=== PATIENT | female | born 1975 | race Caucasian/White ===

== ENCOUNTER 2017-09-10 11:21 | Inpatient (IN) ==
[2017-09-10] MEDS ORDERED: ONDANSETRON 4 MG/2 ML VIAL IV PRN (17:03)
[2017-09-10 17:14] LABS: ABG Base Excess -2.3 MMOL/L (-2.5-2.5); ABG HCO3 22.5 MMOL/L (20-26); ABG Oxygen Saturation 98.8 % (95-100); ABG PCO2 39.1 MM HG (35-48); ABG PH 7.371 (7.35-7.45); ABG TCO2 20.7 MMOL/L (23-27); Allen Test Positive; Pt O2 Delivery Device Venturi Mask
--- NOTE | 2017-09-10 17:22 | Hospitalist History & Physical ---
Assessment and Plan - Time spent with patient Time spent with patient: Greater than 30 minutes (1) Dyspnea Status: Acute Assessment and plan: 42 year old female with severe BENTLEY. Transfer from [place]. ABGs. Stat CXR. Continue breathing treatments. Consider continuous CPAP or BiPAP. Consult pulmonolgy. Due to severe O2 dependency, make NPO. D5 1/2 NS. Possible sepsis. Lactic acid. Blood cultures x2. IV fluids. Current Visit: Yes (2) Hypertension Status: Acute Assessment and plan: Continue home meds. Monitor BP. Current Visit: Yes (3) Mycoplasma pneumonia Status: Acute Assessment and plan: Continue zitromax 500mg Q24H. Consult pulmonology for assistance. Current Visit: Yes (4) Ulcerative colitis, chronic Status: Acute Assessment and plan: Chronic. Controlled with diet. Current Visit: Yes History of Present Illness Chief complaint: severe BENTLEY History of present illness: Ms. Coleman is a 42 year old white female with a past medical history significant for ulcerative colitis, hypertension, mycoplasma pneumonia who presents today as a direct admit from [facility], [place] for further evaluation of severe dyspnea on exertion. 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 She was seen several times over the last 2 weeks by at various clinics both here in [place] and at [place]. She was initially treated with Levaquin and discharged home. She was again admitted 2 days later and found to have mycoplasma pneumoniae and began treatment with azithromycin. The patient continued to have respiratory problems and was transferred to [facility] for further care. On exam, the patient is satting in the upper 90s on 10L O2 per facemask. She is extremely oxygen dependent with her O2 sat dropping to the low 80s if the mask is removed for any period of time. She complains of chest pain, severe BENTLEY, some N/V and LE edema. She denies any other complaints at this time. Lab work is pending. The case has been discussed with Dr. Stone and the patient will be admitted to the hospital medicine service for further evaluation and treatment. She is a FULL CODE and makes her own medical decisions. Home medications have been reviewed and reconciled. Home Medications Medication Instructions Recorded Confirmed Type ALPRAZolam [Alprazolam] 0.5 mg PO TID PRN 09/10/17 09/10/17 History Dextroamphetamine/Amphetamine 20 mg PO BID 09/10/17 09/10/17 History [Adderall 20 mg Tablet] Fluoxetine HCl [Prozac] 40 mg PO DAILY 09/10/17 09/10/17 History Losartan/Hydrochlorothiazide 1 tablet PO DAILY 09/10/17 09/10/17 History [Losartan-Hctz 100-25 mg Tab] Allergies Allergy/AdvReac Type Severity Reaction Status Date / Time Hydromorphone [From Dilaudid] Allergy Verified 09/10/17 15:07 morphine Allergy Verified 09/10/17 15:07 sulfamethoxazole Allergy Verified 09/10/17 15:07 [From Bactrim] trimethoprim [From Bactrim] Allergy Verified 09/10/17 15:07 Medical,Surgical,& Family Hx - Medical History Cardio: History of: Hypertension Psychological: History of: Anxiety Disorders, Depression Neurology: History of: Migraine Respiratory: History of: Bronchitis Gastrointestinal: History of: Ulcerative Colitis - Family History Family History: Reports;: Family Cancer (aunt breast ca), Family Heart Disease ( grandpa), Family Hypertension (grandpa) Denies;: Family Diabetes - Social History Smoking Status: Former smoker Frequency of Alcohol Use: Occasionally Type of Drug Use: None Marital Status: Single Lives With:: Alone Functional capacity: independent ambulation 12 point system: reviewed and no additional remarkable complaints except as stated Exam - Constitutional Vitals: Period Temp Pulse Resp BP Sys/Cardoza Pulse Ox Last 24 Hr 97.4 F-97.4 F 92-92 21-21 157-157/108-108 100-100 Exam: General appearance: obese, mild distress - Head Head exam: Present: normocephalic, atraumatic - Eye Eye exam: Present: EOMI. Absent: conjunctival injection, nystagmus Pupils: Present: BON, normal accommodation - ENT ENT exam: Present: normal exam, normal external ear exam - Neck Neck exam: Present: normal inspection. Absent: lymphadenopathy, tenderness, thyromegaly - Respiratory Respiratory exam: Present: decreased breath sounds bilaterally. Absent: rales, rhonchi, wheezes - Cardiovascular Cardiovascular exam: Present: regular rate and rhythm. Absent: carotid bruit, gallop, rubs - GI/Abdominal GI/Abdominal exam: Present: normal bowel sounds. Absent: ascites, distended, mass - Extremities Exam Extremities exam: Present: normal inspection, normal capillary refill. Absent: edema - Back Exam Back exam: Absent: CVA tenderness (L), CVA tenderness (R) - Neurological Exam Neurological exam: Present: alert, oriented X3, CN II-XII intact, reflexes normal - Psychiatric Psychiatric exam: Present: normal affect, normal mood - Skin Skin exam: Present: normal color, warm, dry Results - Labs Labs: Labs are pending - Diagnostic Findings Procedure: Chest x-ray: image reviewed by me
[2017-09-10] MEDS ORDERED: DEXTROSE 5% NACL 0.45% 1,000 ML IV SCH (18:00)
[2017-09-10 18:18] LABS: Basophils % 0.1 % (0.0-0.8); Hematocrit 32.2 VOL% (35.7-47.0); Hemoglobin 10.1 GM/DL (12.0-16.0); Immature Granulocytes % 1.9 %; Immature Granulocytes Absolute 0.23 #; Lymphocytes # 0.7 10*3/uL (1.4-4.0); Lymphocytes % 5.5 % (21.3-54.2); Mean Corpuscular HGB Conc 31.4 GM/DL (32-36); Mean Corpuscular Hemoglobin 27 PG (27-34); Mean Corpuscular Volume 86.8 FL (87-102); Monocytes # 0.6 10*3/uL (0.11-0.8); Monocytes % 4.7 % (1.7-12.7); NRBC # 0.03 10*3/uL; Neutrophils # 10.8 10*3/uL (1.4-7.4); Neutrophils % 87.8 % (38.7-73.9); Platelet Count 598 T/CUMM (130-400); Red Blood Count 3.71 MC/CUMM (3.8-5.5); Red Cell Distribution Width 15.2 % (9.3-17.3); White Blood Count 12.2 T/CUMM (4-12)
--- NOTE | 2017-09-10 18:20 | XRay Report ---
History: Shortness of breath Date: 09/10/2017 Study: Chest x-ray AP portable Comparison exam: No previous similar There is cardiomegaly. The pulmonary vasculature appears borderline to mildly prominent. There is some patchy and hazy edema/infiltrate in the mid to lower lungs bilaterally. There is trace pleural effusion in the right minor fissure and likely in the lung bases. There is no pneumothorax. Osseous structures are unremarkable. Impression: Diffuse patchy and hazy pulmonary edema/infiltrate, more so in the lung bases. There is cardiomegaly and mild prominence of the pulmonary vasculature, suggesting at least an element of cardiac decompensation PROCEDURE INTERPRETED AT [facility] DEPARTMENT OF RADIOLOGY Final Report Signed by: Dr. Trish Duncan
[2017-09-10 18:27] LABS: Partial Thromboplastin Time 25.2 SECS (0-40)
[2017-09-10 19:04] LABS: Bilirubin,Total 0.4 MG/DL (0.2-1.0); Calcium 9.3 MG/DL (8.5-10.1); Osmolality,Calculated 272.4 MOS/KG (273-304); Potassium 5.4 MMOL/L (3.5-5.1); Thyroid Stimulating Hormone 1.63 uIU/ml (0.358-3.74); Total Protein 6.3 G/DL (6.4-8.3)
[2017-09-10] MEDS: FUROSEMIDE 40 MG/4 ML VIAL IV SCH (19:12)
--- NOTE | 2017-09-10 19:46 | Pulmonology Consult Note ---
History of Present Illness Chief complaint: Pneumonia History of present illness: Dar Villegas, [facility], acting as scribe for Dr. Darren Agustin Ms. Coleman is a 42 year old white female who we have been asked to see in pulmonary consultation for evaluation and treatment. The request for consultation was made by Dr. Stone. 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 She states that she has had an approximate 1 and half week history of worsening shortness of breath. She states that on 08/30/2017 she began "feeling bad". She went to bed early that night and by the next morning she had a productive cough. When she was able to expectorate her sputum it was bloody. She has been seen at clinics locally and here in [place] and treated initially with Levaquin, but reportedly had positive cold agglutinins consistent with mycoplasma and was started on azithromycin. Nonetheless, she is become increasingly more hypoxic. Presently on 10 L oxygen via full facemask she is satting in the upper 80s to low 90s. When she takes the oxygen off, her sats significantly drop. She was admitted to the hospitalist service for further evaluation and care. Tonight she was seen along with her nurse and a female family member. She reports increased shortness of breath and dyspnea on exertion as above. There is been a productive cough with discolored sputum as above. She states that early on the course this illness she had a low-grade fever with a T-max of approximately 99.4, but this quickly broke. At that time, she had associated chills, but has had none since. She denies any cardiac angina or palpitations. She denies dysphasia or reflux. There is been no bleeding from any site. No change in bowel or bladder habits. No TIA symptoms or syncope. All other systems are reviewed and were negative. Allergies: Hydromorphone, morphine, Bactrim DS Home medications: See list Past medical history: Positive for ulcerative colitis, hypertension, anxiety, depression, migraines, and recent diagnosis of mycoplasma pneumonia. Of note, the patient is on Adderall. Family history: Positive for breast cancer in an aunt, heart disease in a grandfather, and hypertension in a grandfather Surgical history: Noncontributory at this time Social history: The patient is respiratory therapist at [employer]. She is a former smoker. She occasionally drinks alcohol. She is single. Chest x-ray. Done 09/10/2017. My interpretation. Five lobe alveolar infiltrate with associated interstitial edema. Laboratory: White count is 12,200 with 87.8% segs, 5.5% lymphs, and 4.7% monos; H&H 10.1/32.2 with decreased indices and top normal red blood cell distribution width; platelet count 598,000; INR 1.0; creatinine 0.70, BUN 29, sodium 133 ( hyponatremia), potassium 5.4 (hyperkalemia); calcium 9.3, albumin 3.0, total protein 6.3; lactic acid 1.6; hemoglobin A1c 4.6; liver function test within normal limits with the exception of a minimally elevated AST of 39; BNP 2357; LDH elevated at 429; TSH and free T4 normal at 1.630 and 1.16 respectively ABGs done 09/10/2017 on an FiO2 of 40% showed pH of 7.371, PCO2 39.1, PO2 126.0 , bicarb 22.5, and oxygen saturation 98.8% Home Medications Medication Instructions Recorded Confirmed Type ALPRAZolam [Alprazolam] 0.5 mg PO TID PRN 09/10/17 09/10/17 History Dextroamphetamine/Amphetamine 20 mg PO BID 09/10/17 09/10/17 History [Adderall 20 mg Tablet] Fluoxetine HCl [Prozac] 40 mg PO DAILY 09/10/17 09/10/17 History Losartan/Hydrochlorothiazide 1 tablet PO DAILY 09/10/17 09/10/17 History [Losartan-Hctz 100-25 mg Tab] Allergies Allergy/AdvReac Type Severity Reaction Status Date / Time Hydromorphone [From Dilaudid] Allergy Verified 09/10/17 15:07 morphine Allergy Verified 09/10/17 15:07 sulfamethoxazole Allergy Verified 09/10/17 15:07 [From Bactrim] trimethoprim [From Bactrim] Allergy Verified 09/10/17 15:07 Exam (Pulmonay) H&P - Constitutional Vitals: Period Temp Pulse Resp BP Sys/Cardoza Pulse Ox Last 24 Hr 97.4 F-97.4 F 92-92 21-21 157-157/108-108 100-100 Exam: Psych: Oriented x 3; a pleasant and cooperative patient who is acutely ill appearing HEENT: Pupils, irises, sclera, conjunctiva, and eyelids are normal. The face is symmetrical without rash or masses. Lips, tongue, buccal mucosa, soft and hard palates, and pharynx are WNL Neck: Symmetrical. Thyroid was not palpated. Lymphatics: No submandibular, cervical, or supraclavicular adenopathy Chest: Symmetrical without wheeze, rhonchi or rales; decreased breath sounds bilaterally Breasts: Deferred CV: [Regular without murmur, rub, or gallop Arterial: Carotids with a good upstroke. There is no bruit. Upper extremity pulses are palpable. Lower extremity pulses are palpable. Venous: Exam of the neck, upper, and lower extremities is normal Abd: No appreciable organomegaly, masses, tenderness, or bruit; Bowel sounds are positive 4; The aorta was not palpated /Rectal: Deferred Extremities: No clubbing, cyanosis, edema, or obvious DVT; bilateral TALITA hose and use Skin: No cancerous or infectious lesions of the exposed, examined skin; the perineal area was not examined M/S: Age appropriate loss of the normal curvature of the cervical, thoracic, and lumbar spine Neurological: Cranial nerves are intact, Long tract motor function is intact; Sensory exam was not done; gait was not tested. The remainder of the exam was noncontributory. Impression: #1: Acute bilateral pneumonia most likely secondary to mycoplasma pneumonia, but consider bacterial superinfection #2: Hypoxemia secondary to #1 #3: Hypertension #4: History of ulcerative colitis #5: Hyperkalemia #6: Anxiety #7: Depression #8: Migraines #9: Anemia #10: Elevated LDH #11: See past history Plan: #1: We agree with the azithromycin, but will add Fortaz and vancomycin for greater gram-negative and gram-positive coverage in the event that this is a bacterial superinfection. Pharmacology has been consulted to dose and manage the vancomycin. #2: We have started Solu-Medrol 40 mg IV every 8 hours. This could easily develop into an adult respiratory distress syndrome picture. We discussed this at length with the patient and her female family member who is present. If the patient begins to deteriorate, we would need to intubate her. She understands this and states that she had been thinking about this prior to our conversation. 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 #3: Check cold agglutinins, Legionella, pro-calcitonin, and strep pneumoniae urine antigen #4: Daily chest x-ray and ABGs #5: Check iron studies, B12 level, and folate level #6: See orders We appreciate this consult and will follow along with you. Medical,Surgical,& Family Hx - Medical History Cardio: History of: Hypertension Psychological: History of: Anxiety Disorders, Depression Neurology: History of: Migraine Respiratory: History of: Bronchitis Gastrointestinal: History of: Ulcerative Colitis - Family History Family History: Reports;: Family Cancer (aunt breast ca), Family Heart Disease ( grandpa), Family Hypertension (grandpa) Denies;: Family Diabetes - Social History Smoking Status: Former smoker Frequency of Alcohol Use: Occasionally Type of Drug Use: None Results - Labs CBC & BMP: 09/10/17 17:33 09/10/17 17:33
[2017-09-10 20:22] LABS: HIV Antigen/Antibody Result Nonreactive (Nonreactive)
--- NOTE | 2017-09-10 20:28 | CT Report ---
History: Shortness of breath. Pneumonia Date: 09/10/2017 Study: CT chest with IV contrast with pulmonary embolus technique Comparison exam: No previous similar The CT exam was performed using one or more of the following dose reduction techniques: Automated exposure control, adjustment of the mA and/or kV according to patient size, or use of iterative reconstruction technique. Spiral CT sections were obtained through the lungs following the IV administration of 80 mL of Omnipaque 350 without immediate complication. Multiplanar reconstruction images are also evaluated. There is no definite discrete filling defect within the pulmonary arterial tree to strongly suggest acute pulmonary embolic disease. There is no thoracic aortic aneurysm or dissection. There is mild mediastinal lymphadenopathy with a largest lymph node measuring at least 11.4 mm short axis diameter in the left prevascular area. There is a moderate to large amount of layering pleural effusion on the right with mild layering left pleural effusion. There is patchy and hazy and groundglass infiltrate scattered throughout both lungs diffusely. Bilateral breast prostheses are noted. There is no definite acute abnormality noted in the partially visualized upper abdomen. Impression: No convincing evidence of acute pulmonary embolic disease Bilateral airspace disease compatible with pneumonia. Right greater than left pleural effusion PROCEDURE INTERPRETED AT [facility] DEPARTMENT OF RADIOLOGY Final Report Signed by: Dr. Trish Duncan
[2017-09-10] MEDS: methylPREDNISolone SOD SUC 40 MG/1 ML VIAL IV SCH (20:29)
[2017-09-10] MEDS: AZITHROMYCIN INJ 500 MG in SODIUM CHLORIDE 0.9% 250 ML IV SCH (20:29)
[2017-09-10] MEDS: ALBUTEROL/IPRATROPIUM 3 ML NEB RESP TX SCH (20:45)
[2017-09-10] MEDS ORDERED: hydrALAZINE 20 MG/1 ML VIAL IV PRN (21:46)
[2017-09-10] MEDS: traMADol 50 MG TABLET PO PRN (22:18)
[2017-09-10] MEDS: VANCOMYCIN INJ 1,000 MG in SODIUM CHLORIDE 0.9% 250 ML IV SCH (23:36)
[2017-09-11] MEDS: ALBUTEROL/IPRATROPIUM 3 ML NEB RESP TX SCH ×4 (00:54→19:23)
[2017-09-11] MEDS: CLINDAMYCIN INJ 900 MG in PREMIX 1 EACH IV SCH ×3 (01:51→20:35)
[2017-09-11 04:01] LABS: Basophils % 0.1 % (0.0-0.8); Eosinophils % 0.1 % (0.00-10.9); Hematocrit 32.4 VOL% (35.7-47.0); Hemoglobin 10.1 GM/DL (12.0-16.0); Immature Granulocytes % 1.5 %; Immature Granulocytes Absolute 0.28 #; Lymphocytes # 0.9 10*3/uL (1.4-4.0); Lymphocytes % 4.8 % (21.3-54.2); Mean Corpuscular HGB Conc 31.2 GM/DL (32-36); Mean Corpuscular Hemoglobin 27 PG (27-34); Mean Corpuscular Volume 85.5 FL (87-102); Mean Platelet Volume 10.4 FL (9.6-12.0); Monocytes # 0.9 10*3/uL (0.11-0.8); NRBC # 0.03 10*3/uL; Neutrophils % 88.5 % (38.7-73.9); Platelet Count 552 T/CUMM (130-400); Red Blood Count 3.79 MC/CUMM (3.8-5.5); Red Cell Distribution Width 15.2 % (9.3-17.3); White Blood Count 18.1 T/CUMM (4-12)
[2017-09-11 04:11] LABS: ABG HCO3 27.2 MMOL/L (20-26); ABG Oxygen Saturation 97.1 % (95-100); ABG PCO2 39.8 MM HG (35-48); ABG PH 7.452 (7.35-7.45); ABG PO2 88.1 MM HG (80-95); ABG TCO2 28.4 MMOL/L (23-27); Allen Test Positive; Pt O2 Delivery Device Venturi Mask
[2017-09-11 04:24] LABS: Potassium 4.7 MMOL/L (3.5-5.1)
[2017-09-11 04:25] LABS: % Iron Saturation 3.6 % (18-50)
[2017-09-11 04:38] LABS: Folate 7.7 NG/ML (5.4-24.0)
[2017-09-11] MEDS: methylPREDNISolone SOD SUC 40 MG/1 ML VIAL IV SCH ×3 (04:38→21:22)
[2017-09-11 05:25] LABS: Band Neutrophils 1 % (0-10); Lymphocytes 6 % (20-55); Myelocytes 1 %; Segmented Neutrophils 86 % (50-85); Total Cells Counted 100
[2017-09-11 05:26] LABS: Anisocytosis 1+
[2017-09-11 05:27] LABS: Platelet Estimate Increased
[2017-09-11] MEDS: VANCOMYCIN INJ 1,000 MG in SODIUM CHLORIDE 0.9% 250 ML IV SCH ×2 (08:40→16:58)
[2017-09-11] MEDS: LOSARTAN 50 MG TABLET PO SCH (08:45)
[2017-09-11] MEDS: FUROSEMIDE 40 MG/4 ML VIAL IV SCH ×2 (08:45→16:58)
[2017-09-11] MEDS: PANTOPRAZOLE 40 MG TABLET PO SCH (08:45)
--- NOTE | 2017-09-11 09:45 | Hospitalist Progress Note ---
Assessment and Plan (1) Hypertension Status: Chronic Current Visit: Yes Qualifiers: Hypertension type: essential hypertension Qualified Code(s): I10 - Essential (primary) hypertension (2) Mycoplasma pneumonia Status: Acute Assessment and plan: Broad-spectrum antibiotics. Pulmonary is following. Remains on facemask oxygen. Current Visit: Yes (3) Dyspnea Status: Acute Assessment and plan: Remains on facemask oxygen. This is improving. Current Visit: Yes Hospitalist: Subjective Interval history: Patient is resting better. She states her breathing is improved. She remains on facemask oxygen sats are 99% but according to patient she is now able to carry a conversation with the support. No fevers or chills. She is maintained on broad-spectrum antibiotics. Exam - Constitutional Vitals: Period Temp Pulse Resp BP Sys/Cardoza Pulse Ox Last 24 Hr 96.4 F-98.5 F 86-106 18-42 135-168/89-109 93-100 General appearance: over weight - Head Head exam: Present: normal inspection - Neck Neck exam: Present: normal inspection - Respiratory Respiratory exam: Present: decreased breath sounds. Absent: wheezes - Cardiovascular Cardiovascular exam: Present: regular rate and rhythm - GI/Abdominal GI/Abdominal exam: Present: normal bowel sounds - Neurological Exam Neurological exam: Present: alert, oriented X3, CN II-XII intact - Psychiatric Psychiatric exam: Present: normal affect, normal mood - Skin Skin exam: Present: normal color Results - Labs CBC & BMP: 09/11/17 03:11 09/11/17 03:11
[2017-09-11] MEDS: PRIMAQUINE PHOSPHATE 26.3 MG TABLET PO SCH (11:06)
--- NOTE | 2017-09-11 11:26 | Pulmonology Progress Note ---
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 My impressions were. #1: Acute bilateral pneumonia most likely secondary to mycoplasma pneumonia, but consider bacterial superinfection #2: Hypoxemia secondary to #1 #3: Hypertension #4: History of ulcerative colitis #5: Hyperkalemia #6: Anxiety #7: Depression #8: Migraines #9: Anemia #10: Elevated LDH #11: See past history 12. Additional findings are. Low iron. Low B12 level. Elevated LDH. 09/11/2017. Today's chest x-ray shows some subtle improvement especially on the left. There is impractical ground for 5 lobe alveolar interstitial infiltrate. Small amount of pleural effusion can be seen bilaterally. Chest x- ray done yesterday showed multiple areas of consolidation. It was more pleural fluid and expected on the right and the left. Patient has been diuresed beginning last night. She has put out a lot of fluid she feels like she can breathe a good bit better. ABGs on FiO2 of 40% or is not as good as I would like. PH is 7.45. PCO2 is 39.8. PO2 is 88.1 and bicarb is 27.2. Patient's chest is clear and she has better inspiratory excursion. We talked about the possibility of adult respiratory distress syndrome. If the patient deteriorates any she should be put on a ventilator and she understands that. Both the patient and I are hopeful that the day represents a turnaround for her. Patient's sputum showed few gram-positive cocci and many gram-positive rods. The really only 3 possibilities on the gram-positive rods. This would be Bacteroides, Listeria and anthrax. I have questioned patient about potential exposures and is not a lot to suggest any of these possibilities. I noticed a Cleocin has been added to her regimen and I think this is a good idea. Patient is on Fortaz and vancomycin. She is also on Zithromax. She reportedly had mycoplasma pneumoniae in [place]. Her cold agglutinins here negative. I am not opposed to continuing Zithromax for short period of time because of his anti-inflammatory properties. Vitamin B12 is low at 208. Folic acid is normal. Thyroid function tests are normal. Natruretic peptide is elevated at 2359. LDH is also elevated. Serum iron is low. Physical exam. Vital signs. See below. Afebrile. Psychiatric. Alert and oriented. Intelligent. I do not hear Velcro rales. Heart. No gallop Abdomen. Nondistended nontender. Bowel sounds are positive. Face. Symmetrical. Lips and tongue are normal. Neck. Symmetrical no meningismus. Lymphatics. No submandibular cervical supraclavicular or epitrochlear adenopathy Chest is clear with better inspiratory excursion. Extremities. Nothing to suggest deep venous thrombophlebitis The remainder the physical exam is negative. Plan: 09/10/2017 #1: We agree with the azithromycin, but will add Fortaz and vancomycin for greater gram-negative and gram-positive coverage in the event that this is a bacterial superinfection. Pharmacology has been consulted to dose and manage the vancomycin. #2: We have started Solu-Medrol 40 mg IV every 8 hours. This could easily develop into an adult respiratory distress syndrome picture. We discussed this at length with the patient and her female family member who is present. If the patient begins to deteriorate, we would need to intubate her. She understands this and states that she had been thinking about this prior to our conversation. 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 #3: Check cold agglutinins, Legionella, pro-calcitonin, and strep pneumoniae urine antigen #4: Daily chest x-ray and ABGs #5: Check iron studies, B12 level, and folate level #6: See orders 09/11/2017. 1. Causing amount of pleural effusion this patient has I am going to check an echocardiogram. 2. Continue to follow daily chest x-rays and ABGs. 3. At the patient deteriorates she needs to be intubated and treated as adult respiratory distress syndrome. 4. Legionella titers pending. Cultures are pending. Pro-calcitonin is pending. 5. Echocardiogram. 6. See today's note above. Exam (Progress Note) - Constitutional Vitals: Period Temp Pulse Resp BP Sys/Cardoza Pulse Ox Last 24 Hr 96.4 F-98.5 F 86-106 18-42 135-168/89-109 93-100 Results - Labs CBC & BMP: 09/11/17 03:11 09/11/17 03:11
--- NOTE | 2017-09-11 11:36 | XRay Report ---
History: Shortness of breath. Pneumonia Date: 09/11/2017 Study: Chest x-ray PA and lateral Comparison exam: 09/10/2017 There is continued cardiomegaly. The mediastinal contours are similar. There is patchy and hazy infiltrate in the mid to lower lungs bilaterally as before. These changes are grossly similar. There is no significant layering pleural effusion. Osseous structures are unchanged. Impression: Continued bilateral pneumonia without significant interval change PROCEDURE INTERPRETED AT [facility] DEPARTMENT OF RADIOLOGY Final Report Signed by: Dr. Trish Duncan
--- NOTE | 2017-09-11 16:15 | Order Completion Report ---
See report scanned to EMR
[2017-09-11] MEDS: traMADol 50 MG TABLET PO PRN (21:22)
[2017-09-11] MEDS: AZITHROMYCIN INJ 500 MG in SODIUM CHLORIDE 0.9% 250 ML IV SCH (21:22)
[2017-09-11] MEDS: guaiFENesin/DM ER 600-30 MG TABLET PO PRN (21:22)
[2017-09-12] MEDS: ALBUTEROL/IPRATROPIUM 3 ML NEB RESP TX SCH ×4 (02:10→19:40)
[2017-09-12] MEDS: CLINDAMYCIN INJ 900 MG in PREMIX 1 EACH IV SCH ×3 (03:01→17:31)
[2017-09-12] MEDS: methylPREDNISolone SOD SUC 40 MG/1 ML VIAL IV SCH ×3 (03:58→20:42)
[2017-09-12 06:00] LABS: ABG Base Excess 5.9 MMOL/L (-2.5-2.5); ABG HCO3 29.8 MMOL/L (20-26); ABG Oxygen Saturation 99.7 % (95-100); ABG PCO2 46.5 MM HG (35-48); ABG PH 7.433 (7.35-7.45); ABG TCO2 28.1 MMOL/L (23-27); Allen Test Positive; Pt O2 Delivery Device Venturi Mask
[2017-09-12 06:43] LABS: Basophils % 0.1 % (0.0-0.8); Hematocrit 32.8 VOL% (35.7-47.0); Hemoglobin 10.4 GM/DL (12.0-16.0); Immature Granulocytes % 1.2 %; Immature Granulocytes Absolute 0.14 #; Lymphocytes # 0.7 10*3/uL (1.4-4.0); Lymphocytes % 6.2 % (21.3-54.2); Mean Corpuscular HGB Conc 31.7 GM/DL (32-36); Mean Corpuscular Hemoglobin 27 PG (27-34); Mean Corpuscular Volume 84.1 FL (87-102); Mean Platelet Volume 9.8 FL (9.6-12.0); Monocytes # 0.6 10*3/uL (0.11-0.8); Monocytes % 5.1 % (1.7-12.7); Neutrophils # 9.8 10*3/uL (1.4-7.4); Neutrophils % 87.4 % (38.7-73.9); Platelet Count 619 T/CUMM (130-400); Red Cell Distribution Width 14.8 % (9.3-17.3); White Blood Count 11.3 T/CUMM (4-12)
[2017-09-12 07:09] LABS: Osmolality,Calculated 283.5 MOS/KG (273-304)
[2017-09-12] MEDS: LOSARTAN 50 MG TABLET PO SCH (09:01)
[2017-09-12] MEDS: PANTOPRAZOLE 40 MG TABLET PO SCH (09:01)
[2017-09-12] MEDS: PRIMAQUINE PHOSPHATE 26.3 MG TABLET PO SCH (09:22)
[2017-09-12] MEDS: FUROSEMIDE 40 MG/4 ML VIAL IV SCH ×2 (09:25→16:19)
--- NOTE | 2017-09-12 09:57 | Hospitalist Progress Note ---
Assessment and Plan - Time spent with patient Time spent with patient: Less than 30 minutes (1) Mycoplasma pneumonia Status: Acute Assessment and plan: Patient continues to improve. We are continuing IV antibiotics as well as nebulizer therapy. Her O2 requirements are decreasing and she is symptomatically improving. Continue current care. Current Visit: Yes (2) Hypertension Status: Chronic Assessment and plan: Blood pressures are stable. Continue current care. Current Visit: Yes Qualifiers: Hypertension type: essential hypertension Qualified Code(s): I10 - Essential (primary) hypertension (3) Ulcerative colitis, chronic Status: Acute Assessment and plan: Stable. Continue current care. Current Visit: Yes Hospitalist: Subjective Interval history: Chart is been reviewed. Patient examined. She states that she is breathing better and they have been able to wean her O2 to nasal cannula. She has minimal cough with no sputum production at this time. She is tolerating her diet and has no complaints of nausea, vomiting, diarrhea. Exam - Constitutional Vitals: Period Temp Pulse Resp BP Sys/Cardoza Pulse Ox Last 24 Hr 97.0 F-98.2 F 88-102 18-24 129-160/85-104 92-100 General appearance: no acute distress - Head Head exam: Present: normocephalic, atraumatic - Eye Eye exam: Present: EOMI Pupils: Present: BON - ENT ENT exam: Present: normal oropharynx - Neck Neck exam: Present: normal inspection. Absent: meningismus - Respiratory Respiratory exam: Present: clear to auscultation bilaterally. Absent: rales, rhonchi, wheezes - Cardiovascular Cardiovascular exam: Present: regular rate and rhythm. Absent: systolic murmur , tachycardia - GI/Abdominal GI/Abdominal exam: Present: normal bowel sounds, soft. Absent: mass, tenderness , rebound - Extremities Exam Extremities exam: Absent: calf tenderness, edema - Back Exam Back exam: Present: normal inspection - Neurological Exam Neurological exam: Present: alert, oriented X3, CN II-XII intact. Absent: motor sensory deficit - Psychiatric Psychiatric exam: Present: normal affect, normal mood. Absent: agitated, anxious - Skin Skin exam: Present: warm, dry. Absent: rash Results - Labs CBC & BMP: 09/12/17 06:00 09/12/17 06:00 Lab Results: I have reviewed the past 24 hour labs
--- NOTE | 2017-09-12 10:45 | XRay Report ---
History: Pneumonia Date: 09/12/2017 Study: Chest x-ray PA and lateral Comparison exam: 09/11/2017 There is continued cardiomegaly. The mediastinal contours are unchanged. The pulmonary vasculature is not engorged. There is patchy and hazy infiltrate compatible with pneumonia in the mid to lower lungs bilaterally as before. This is very minimally improved. There is no significant layering pleural effusion. Osseous structures are unchanged. Impression: Continued bilateral pneumonia with very minimal interval improvement PROCEDURE INTERPRETED AT [facility] DEPARTMENT OF RADIOLOGY Final Report Signed by: Dr. Trish Duncan
[2017-09-12] MEDS: ACETAMINOPHEN 325 MG TABLET PO PRN (11:58)
[2017-09-12] MEDS: VANCOMYCIN INJ 1,000 MG in SODIUM CHLORIDE 0.9% 250 ML IV SCH ×4 (12:33→23:50)
--- NOTE | 2017-09-12 14:15 | Pulmonology Progress Note ---
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 My impressions were. #1: Acute bilateral pneumonia most likely secondary to mycoplasma pneumonia, but consider bacterial superinfection #2: Hypoxemia secondary to #1 #3: Hypertension #4: History of ulcerative colitis #5: Hyperkalemia #6: Anxiety #7: Depression #8: Migraines #9: Anemia #10: Elevated LDH #11: See past history 12. Additional findings are. Low iron. Low B12 level. Elevated LDH. 13. Echocardiogram. 09/11/2017. Mild to moderate mitral regurgitation 09/11/2017. Today's chest x-ray shows some subtle improvement especially on the left. There is impractical ground for 5 lobe alveolar interstitial infiltrate. Small amount of pleural effusion can be seen bilaterally. Chest x- ray done yesterday showed multiple areas of consolidation. It was more pleural fluid and expected on the right and the left. Patient has been diuresed beginning last night. She has put out a lot of fluid she feels like she can breathe a good bit better. ABGs on FiO2 of 40% or is not as good as I would like. PH is 7.45. PCO2 is 39.8. PO2 is 88.1 and bicarb is 27.2. Patient's chest is clear and she has better inspiratory excursion. We talked about the possibility of adult respiratory distress syndrome. If the patient deteriorates any she should be put on a ventilator and she understands that. Both the patient and I are hopeful that the day represents a turnaround for her. Patient's sputum showed few gram-positive cocci and many gram-positive rods. The really only 3 possibilities on the gram-positive rods. This would be Bacteroides, Listeria and anthrax. I have questioned patient about potential exposures and is not a lot to suggest any of these possibilities. I noticed a Cleocin has been added to her regimen and I think this is a good idea. Patient is on Fortaz and vancomycin. She is also on Zithromax. She reportedly had mycoplasma pneumoniae in [place]. Her cold agglutinins here negative. I am not opposed to continuing Zithromax for short period of time because of his anti-inflammatory properties. Vitamin B12 is low at 208. Folic acid is normal. Thyroid function tests are normal. Natruretic peptide is elevated at 2359. LDH is also elevated. Serum iron is low. 09/12/2017. Today's chest x-ray is improved again. Heart is top normal. Pulmonary arteries are top normal. 5 lobe alveolar/interstitial infiltrate is improved by 50% or more. Pleural effusions have decreased. Patient feels much better. Echocardiogram. 09/11/2017. Normal left ventricular size with mild concentric left ventricular hypertrophy and ejection fraction greater than 55%. Mildly dilated left atrium with mild to moderate mitral regurgitation. Mild enlargement of the right atrium. Vancomycin level is 15.8 this is being managed by pharmacology. Natruretic peptide is dropped from 2357-899. ABGs on FiO2 of 50% show a pH 7.433, PCO2 of 46.5 and a PO2 of 157. Bicarb is 29.8. White count has dropped to 11,300 with an H&H of 10.4/32.8 and a platelet count 619,000 Physical exam. Vital signs. See below. Afebrile. Psychiatric. Alert and oriented. Intelligent. I do not hear Velcro rales. Heart. No gallop Abdomen. Nondistended nontender. Bowel sounds are positive. Face. Symmetrical. Lips and tongue are normal. Neck. Symmetrical no meningismus. Lymphatics. No submandibular cervical supraclavicular or epitrochlear adenopathy Chest is clear with better inspiratory excursion. Extremities. Nothing to suggest deep venous thrombophlebitis The remainder the physical exam is negative. Plan: 09/10/2017 #1: We agree with the azithromycin, but will add Fortaz and vancomycin for greater gram-negative and gram-positive coverage in the event that this is a bacterial superinfection. Pharmacology has been consulted to dose and manage the vancomycin. #2: We have started Solu-Medrol 40 mg IV every 8 hours. This could easily develop into an adult respiratory distress syndrome picture. We discussed this at length with the patient and her female family member who is present. If the patient begins to deteriorate, we would need to intubate her. She understands this and states that she had been thinking about this prior to our conversation. 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 #3: Check cold agglutinins, Legionella, pro-calcitonin, and strep pneumoniae urine antigen #4: Daily chest x-ray and ABGs #5: Check iron studies, B12 level, and folate level #6: See orders 09/11/2017. 1. Causing amount of pleural effusion this patient has I am going to check an echocardiogram. 2. Continue to follow daily chest x-rays and ABGs. 3. At the patient deteriorates she needs to be intubated and treated as adult respiratory distress syndrome. 4. Legionella titers pending. Cultures are pending. Pro-calcitonin is pending. 5. Echocardiogram. 6. See today's note above. 09/12/2017. 1. See today's note above 2. Chest x-ray and ABGs have improved 3. Mild to moderate mitral regurgitation. 4. So far no positive cultures. 5. Marked improvement in the patient. Exam (Progress Note) - Constitutional Vitals: Period Temp Pulse Resp BP Sys/Cardoza Pulse Ox Last 24 Hr 97.0 F-97.8 F 88-98 18-24 135-160/88-104 94-100 Results - Labs CBC & BMP: 09/12/17 06:00 09/12/17 06:00
[2017-09-12] MEDS: guaiFENesin/DM ER 600-30 MG TABLET PO PRN (20:42)
[2017-09-12] MEDS: traMADol 50 MG TABLET PO PRN (20:42)
[2017-09-13] MEDS: ALBUTEROL/IPRATROPIUM 3 ML NEB RESP TX SCH ×4 (00:38→19:15)
[2017-09-13] MEDS: CLINDAMYCIN INJ 900 MG in PREMIX 1 EACH IV SCH ×2 (02:49→11:56)
[2017-09-13] MEDS: methylPREDNISolone SOD SUC 40 MG/1 ML VIAL IV SCH ×2 (03:28→22:25)
[2017-09-13] MEDS: ACETAMINOPHEN 325 MG TABLET PO PRN ×2 (03:28→12:12)
[2017-09-13 06:26] LABS: Allen Test Positive
[2017-09-13 06:27] LABS: ABG Base Excess 7.4 MMOL/L (-2.5-2.5); ABG HCO3 31.7 MMOL/L (20-26); ABG Oxygen Saturation 97.9 % (95-100); ABG PCO2 43.2 MM HG (35-48); ABG PH 7.483 (7.35-7.45); ABG PO2 107.1 MM HG (80-95)
[2017-09-13 07:12] LABS: Basophils % 0.1 % (0.0-0.8); Eosinophils % 0.1 % (0.00-10.9); Hematocrit 35.2 VOL% (35.7-47.0); Hemoglobin 11.4 GM/DL (12.0-16.0); Immature Granulocytes % 0.9 %; Immature Granulocytes Absolute 0.13 #; Lymphocytes # 1.1 10*3/uL (1.4-4.0); Lymphocytes % 7.6 % (21.3-54.2); Mean Corpuscular HGB Conc 32.4 GM/DL (32-36); Mean Corpuscular Hemoglobin 27 PG (27-34); Mean Platelet Volume 9.8 FL (9.6-12.0); Monocytes # 0.7 10*3/uL (0.11-0.8); Monocytes % 5.1 % (1.7-12.7); Neutrophils # 11.9 10*3/uL (1.4-7.4); Neutrophils % 86.2 % (38.7-73.9); Platelet Count 626 T/CUMM (130-400); Red Blood Count 4.24 MC/CUMM (3.8-5.5); Red Cell Distribution Width 14.8 % (9.3-17.3); White Blood Count 13.8 T/CUMM (4-12)
[2017-09-13 07:43] LABS: Calcium 9.1 MG/DL (8.5-10.1); Potassium 4.8 MMOL/L (3.5-5.1)
[2017-09-13] MEDS: FUROSEMIDE 40 MG/4 ML VIAL IV SCH ×2 (08:37→16:20)
[2017-09-13] MEDS: VANCOMYCIN INJ 1,000 MG in SODIUM CHLORIDE 0.9% 250 ML IV SCH ×2 (08:41→16:19)
[2017-09-13] MEDS: LOSARTAN 50 MG TABLET PO SCH (08:45)
[2017-09-13] MEDS: PANTOPRAZOLE 40 MG TABLET PO SCH (08:45)
[2017-09-13] MEDS: PRIMAQUINE PHOSPHATE 26.3 MG TABLET PO SCH (08:46)
--- NOTE | 2017-09-13 09:14 | XRay Report ---
XR chest 2V Indication: Pneumonia. Chest 2 views: Comparison yesterday shows improved aeration but persistent infiltrate left lung base. Lungs are somewhat hypoinflated in the right lung appears generally clear. Heart size is normal. Impression: Improving but persistent left basilar pneumonia. PROCEDURE INTERPRETED AT [facility] DEPARTMENT OF RADIOLOGY Final Report Signed by: Paolo Mcdermott M.D.
--- NOTE | 2017-09-13 12:40 | Pulmonology Progress Note ---
Pulmonary - PN: Subj Interval history: Dar Villegas, [facility]-, acting as scribe for Dr. 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 At that time, our impressions were: #1: Acute bilateral pneumonia most likely secondary to mycoplasma pneumonia, but consider bacterial superinfection #2: Hypoxemia secondary to #1 #3: Hypertension #4: History of ulcerative colitis #5: Hyperkalemia #6: Anxiety #7: Depression #8: Migraines #9: Anemia #10: Elevated LDH #11: See past history #12. Additional findings are. Low iron. Low B12 level. Elevated LDH. #13. Echocardiogram. 09/11/2017. Mild to moderate mitral regurgitation 09/11/2017. Today's chest x-ray shows some subtle improvement especially on the left. There is impractical ground for 5 lobe alveolar interstitial infiltrate. Small amount of pleural effusion can be seen bilaterally. Chest x- ray done yesterday showed multiple areas of consolidation. It was more pleural fluid and expected on the right and the left. Patient has been diuresed beginning last night. She has put out a lot of fluid she feels like she can breathe a good bit better. ABGs on FiO2 of 40% or is not as good as I would like. PH is 7.45. PCO2 is 39.8. PO2 is 88.1 and bicarb is 27.2. Patient's chest is clear and she has better inspiratory excursion. We talked about the possibility of adult respiratory distress syndrome. If the patient deteriorates any she should be put on a ventilator and she understands that. Both the patient and I are hopeful that the day represents a turnaround for her. Patient's sputum showed few gram-positive cocci and many gram-positive rods. The really only 3 possibilities on the gram-positive rods. This would be Bacteroides, Listeria and anthrax. I have questioned patient about potential exposures and is not a lot to suggest any of these possibilities. I noticed a Cleocin has been added to her regimen and I think this is a good idea. Patient is on Fortaz and vancomycin. She is also on Zithromax. She reportedly had mycoplasma pneumoniae in [place]. Her cold agglutinins here negative. I am not opposed to continuing Zithromax for short period of time because of his anti-inflammatory properties. Vitamin B12 is low at 208. Folic acid is normal. Thyroid function tests are normal. Natruretic peptide is elevated at 2359. LDH is also elevated. Serum iron is low. 09/12/2017. Today's chest x-ray is improved again. Heart is top normal. Pulmonary arteries are top normal. 5 lobe alveolar/interstitial infiltrate is improved by 50% or more. Pleural effusions have decreased. Patient feels much better. Echocardiogram. 09/11/2017. Normal left ventricular size with mild concentric left ventricular hypertrophy and ejection fraction greater than 55%. Mildly dilated left atrium with mild to moderate mitral regurgitation. Mild enlargement of the right atrium. 09/13/2017. On room air at rest, the patient's oxygen sats are now approximately 95-99%. They still continues to drop with any exertion, but this is a marked improvement since our initial consultation. Chest x-ray has also made a remarkable improvement over time. We discussed with her today that we feel not only will be dealing with an element of cards, but we also felt that there was an underlying element of congestive heart failure as noted by her significantly elevated natruretic peptide. Certainly, given her presentation, one must consider the possibility of SBE. We have diuresed her, but we feel that we need to continue Solu-Medrol and antibiotics for a while longer. She has never been told that she had mitral regurgitation. All things considered, will consult cardiology for evaluation and treatment. She is also been found to have iron deficiency and B12 deficiency. She has been started on ferrous sulfate will be given B12 injection today. We have discussed her case with Dr. Johnston today and coordinated our care. Medications have been reviewed. Labs been reviewed. White count is 13,800 with 86.2% segs; H&H 11.4/35.2; platelet count 626,000; creatinine 2.70, BUN 30, electrolytes are normal; BNP 399 ABGs this morning on an FiO2 of 36% show pH of 7.483, PCO2 43.2, PO2 107.1, bicarb 31.7, oxygen saturation 97.9% Exam (Progress Note) - Constitutional Vitals: Period Temp Pulse Resp BP Sys/Cardoza Pulse Ox Last 24 Hr 97.4 F-98.8 F 88-108 18-22 129-160/78-99 93-100 Exam: Chest is clear Heart no gallop Abdomen is nontender and nondistended; bowel sounds are positive 4 Extremities with nothing to suggest acute deep venous thrombophlebitis Psychiatric oriented 3 and intelligent Neurologic long-term motor function is intact Plan: Consult cardiology for evaluation and treatment as they deem necessary. Start ferrous sulfate 325 mg p.o. twice daily. Give B12 injection today. Decrease Solu-Medrol to 20 mg IV every 12 hours. Convert IV to INT and stop IV fluids. See orders. Results - Labs CBC & BMP: 09/13/17 06:02 09/13/17 06:02
--- NOTE | 2017-09-13 12:47 | Order Completion Report ---
See report scanned to EMR
--- NOTE | 2017-09-13 12:48 | Infectious Disease Consult ---
Assessment and Plan (1) Pneumonia Status: Acute Assessment and plan: Patient's chest x-ray is much improvement clinically she is much better from description of what she was on admission. I believe there was definitely an element of pulmonary edema along with pneumonia. Recommendations: 1. Discontinue clindamycin 2. Continue vancomycin and Zosyn and I would complete a total of 7 days therapy , so 4 more days to go. Thank you very much for the consult. Will follow. Discussed with Dr. 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 The cough started overnight and by the morning she realized she was having hemoptysis. She had low-grade fever initially. She ended up seeking medical attention and got breathing treatments and antibiotics and got better within a week and so therefore she went back to work. However she started getting sick again with malaise worsening cough and difficulty breathing. She was readmitted and ended up being transferred here for further care. Patient was told somewhere along the line that she has mycoplasma pneumonia infection however there was never any proof of this. She has been on ceftazidime, vancomycin, and over the weekend clindamycin was added. She also gotten azithromycin initially but that was discontinued a few days ago. I am asked to assist with antibiotic management. Overall patient says she is feeling significantly better today and no longer requires supplemental oxygen. This is compared to when she came in when her oxygen was in the 70s and she required 10 L oxygen via facemask. Home Medications Medication Instructions Recorded Confirmed Type ALPRAZolam [Alprazolam] 0.5 mg PO TID PRN 09/10/17 09/10/17 History Dextroamphetamine/Amphetamine 20 mg PO BID 09/10/17 09/10/17 History [Adderall 20 mg Tablet] Fluoxetine HCl [Prozac] 40 mg PO DAILY 09/10/17 09/10/17 History Losartan/Hydrochlorothiazide 1 tablet PO DAILY 09/10/17 09/10/17 History [Losartan-Hctz 100-25 mg Tab] Allergies Allergy/AdvReac Type Severity Reaction Status Date / Time Hydromorphone [From Dilaudid] Allergy Verified 09/10/17 15:07 morphine Allergy Verified 09/10/17 15:07 sulfamethoxazole Allergy Verified 09/10/17 15:07 [From Bactrim] trimethoprim [From Bactrim] Allergy Verified 09/10/17 15:07 12 point system: reviewed and no additional remarkable complaints except as stated (Per HPI) Medical,Surgical,& Family Hx - Medical History Cardio: History of: Hypertension Psychological: History of: Anxiety Disorders, Depression Neurology: History of: Migraine Respiratory: History of: Bronchitis Gastrointestinal: History of: Ulcerative Colitis - Family History Family History: Reports;: Family Cancer (aunt breast ca), Family Heart Disease ( grandpa), Family Hypertension (grandpa) Denies;: Family Diabetes - Social History Smoking Status: Former smoker Frequency of Alcohol Use: Occasionally Type of Drug Use: None Infectious Disease Exam H&P - Constitutional Vitals: Vital Signs Temp Pulse Resp BP Pulse Ox 98.8 F 97 H 18 129/78 100 09/13/17 12:00 09/13/17 12:00 09/13/17 12:00 09/13/17 12:00 09/13/17 12:00 Intake and Output 09/12/17 09/13/17 09/13/17 23:59 07:59 15:59 Intake Total 400 / 400 400 / 400 350 / 350 Balance 400 / 400 400 / 400 350 / 350 Intake: IV 400 / 400 400 / 400 350 / 350 Cleocin Inj 900 mg In 50 / 50 50 / 50 Premix 1 Each @ 100 mls/ hr IV Q8H JASON Rx#: [id number] Vancomycin Inj 1,000 mg 250 / 250 250 / 250 250 / 250 In Ns 250 ml @ 250 mls/hr IV Q8H JASON Rx#: [id number] Fortaz 1,000 mg In Ns 100 100 / 100 100 / 100 100 / 100 ml @ 100 mls/hr IV Q8H JASON Rx#:[id number] Other: Voiding Method Toilet Toilet # Voids 3 2 Exam: General: Patient comfortable, completely nontoxic appearing HEENT: Mucous membranes pink and moist, anicteric acyanotic, BON, no oropharyngeal exudates Neck: Supple, no thyroid gland enlargement Respiratory system: Breath sounds vesicular, no crepitations or wheezes Cardiovascular: Normal S1 and S2, no murmurs appreciated Abdomen: Normal bowel sounds, soft nontender throughout, no organomegaly or mass Genitourinary: No suprapubic pain or bladder distention Extremities: no edema Skin: No rash Reports - Labs CBC & BMP: 09/13/17 06:02 09/13/17 06:02 Labs: Laboratory Results - last 24 hr 09/13/17 09/13/17 09/13/17 05:55 06:02 06:02 WBC 13.8 H RBC 4.24 Hgb 11.4 L Hct 35.2 L MCV 83.0 L MCH 27 MCHC 32.4 RDW 14.8 Plt Count 626 H MPV 9.8 Neut % (Auto) 86.2 H Lymph % (Auto) 7.6 L Larue % (Auto) 5.1 Eos % (Auto) 0.1 Baso % (Auto) 0.1 Neut # (Auto) 11.9 H Lymph # (Auto) 1.1 L Larue # (Auto) 0.7 Eos # (Auto) 0.0 Baso # (Auto) 0.0 Immature Gran % 0.9 Nucleated RBC % 0.0 Immature Gran # 0.13 Nucleated RBCs # 0.00 Immature Plt Fraction 0.0 ABG pH 7.483 H ABG pCO2 43.2 ABG pO2 107.1 H ABG HCO3 31.7 H ABG Total CO2 33.0 H ABG O2 Saturation 97.9 ABG Base Excess 7.4 H FiO2 36.00 Sodium 136 Potassium 4.8 Chloride 98 Carbon Dioxide 31 Anion Gap 11.8 BUN 30 H Creatinine 0.70 GFR Calculation 118 BUN/Creatinine Ratio 42.00 H Glucose 88 Calculated Osmolality 276.0 Calcium 9.1 B-Natriuretic Peptide 09/13/17 06:02 WBC RBC Hgb Hct MCV MCH MCHC RDW Plt Count MPV Neut % (Auto) Lymph % (Auto) Larue % (Auto) Eos % (Auto) Baso % (Auto) Neut # (Auto) Lymph # (Auto) Larue # (Auto) Eos # (Auto) Baso # (Auto) Immature Gran % Nucleated RBC % Immature Gran # Nucleated RBCs # Immature Plt Fraction ABG pH ABG pCO2 ABG pO2 ABG HCO3 ABG Total CO2 ABG O2 Saturation ABG Base Excess FiO2 Sodium Potassium Chloride Carbon Dioxide Anion Gap BUN Creatinine GFR Calculation BUN/Creatinine Ratio Glucose Calculated Osmolality Calcium B-Natriuretic Peptide 399 H - Reports Microbiology: Microbiology 09/11/17 22:11 Fungal Smear - Final Sputum - Expectorated Few fungal elements seen 09/11/17 22:11 Sputum Culture - Final Sputum Normal Manuela at 48 hours Gram Stain - Final 09/10/17 19:20 Sputum Culture - Preliminary Sputum Yeast Gram Stain - Final - Diagnostic Findings Procedure: Chest x-ray: image reviewed by me, report reviewed by me (Much improved bilateral patchy opacities, now mostly in the bases), CT - chest: image reviewed by me, report reviewed by me (Diffuse ground glass opacities)
[2017-09-13] MEDS ORDERED: CYANOCOBALAMIN 1000 MCG/1 ML VIAL IM ONE (13:00)
--- NOTE | 2017-09-13 13:16 | Hospitalist Progress Note ---
Assessment and Plan (1) Pneumonia Status: Acute Assessment and plan: 1)bilateral pneumonia- appreciate Dr Johnston and pulmonary advise. On vanc and zosyn now. Definitely improving. Continue current care with 4 more days of antibiotics per ID. 2)HTN- stable 3)Ulcerative colitis- stable. Current Visit: Yes (2) Hypertension Status: Chronic Current Visit: Yes Qualifiers: Hypertension type: essential hypertension Qualified Code(s): I10 - Essential (primary) hypertension (3) Ulcerative colitis, chronic Status: Acute Current Visit: Yes (4) Dyspnea Status: Acute Current Visit: Yes Hospitalist: Subjective Interval history: Ms Coleman is doing very well compared to admission. She is off supplemental O2 and is able to walk around the room without dyspnea. She would like to walk in the [place], but her sats drop when she is up. She is eating well. Exam - Constitutional Vitals: Period Temp Pulse Resp BP Sys/Cardoza Pulse Ox Last 24 Hr 97.4 F-98.8 F 88-108 18-22 129-160/78-99 93-100 General appearance: no acute distress, over weight - Eye Eye exam: Present: EOMI. Absent: scleral icterus - Respiratory Respiratory exam: Present: rales (bilateral narvaez). Absent: wheezes - Cardiovascular Cardiovascular exam: Present: regular rate and rhythm - GI/Abdominal GI/Abdominal exam: Present: normal bowel sounds, soft. Absent: tenderness - Extremities Exam Extremities exam: Absent: edema - Neurological Exam Neurological exam: Present: alert, oriented X3 - Psychiatric Psychiatric exam: Present: normal affect, normal mood - Skin Skin exam: Present: warm, dry Results - Labs CBC & BMP: 09/13/17 06:02 09/13/17 06:02 Lab Results: I have reviewed the past 24 hour labs
--- NOTE | 2017-09-13 13:31 | Cardiology Consult Note ---
Assessment and Plan - Time spent with patient Time spent with patient: Greater than 30 minutes (1) Acute diastolic CHF (congestive heart failure), NYHA class 3 Status: Acute Assessment and plan: SEE PLAN OF CARE LISTED BELOW Current Visit: Yes (2) Mitral regurgitation Status: Acute Assessment and plan: SEE PLAN OF CARE LISTED BELOW Current Visit: Yes (3) Pneumonia Status: Acute Assessment and plan: SEE PLAN OF CARE LISTED BELOW Current Visit: Yes (4) Hypertension Status: Chronic Assessment and plan: SEE PLAN OF CARE LISTED BELOW Current Visit: Yes Qualifiers: Hypertension type: essential hypertension Qualified Code(s): I10 - Essential (primary) hypertension History of Present Illness - Data of Consult Patient: new to practice Consult date: 09/13/17 Requesting Physician: Dar Villegas - Consult Narrative Reason for consult: SOB, acute CHF History of present illness: [employer] ADMINISTRATOR: DR. GARCIA ([facility]) Ms. Coleman, 42WF, with risk factors significant for: hypertension. Admitted September 10, 2017 for treatment of acute bilateral pneumonia and hypoxemia. 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 She was hospitalized at [facility] for several days with no improvement in her condition. She continued to require 12 L oxygen simply to maintain her oxygen saturations greater than 90%. She was then transferred to our facility for continued treatment. Cardiology was consulted for evaluation and management of possible acute CHF as her proBNP was 2357 on admission, chest x-ray revealed possible mild CHF. September 11, 2017 echocardiogram revealed: EF greater than 55 %, mild to moderate mitral regurgitation. Of note, patient reports she was hypokalemic at [facility] and was given numerous bags of IV fluids in order to correct her potassium. She reports also having taken and completed an entire round of oral steroids over the past several weeks , and has received oral and IV steroids since hospitalization. She is normally very active without chest pain, heaviness, tightness or shortness of breath. Denies palpitations or heart racing. Initially while hospitalized at [facility] she tells me her blood pressure was uncontrolled with blood pressure around 170/ 110 mmHg. It is usually well controlled. Heart rate has been high during admission (averaging 100 bpm) but no arrhythmia. Patient is feeling markedly better today. I suspect she may have had a mild amount of acute CHF secondary to diastolic dysfunction, now resolved. With a combination of numerous bags of IV resuscitation, a significant amount of steroids, and uncontrolled hypertension she developed fluid volume overload. Per echocardiogram she has only mild to moderate mitral regurgitation and we can repeat an echocardiogram in 6 months outpatient [address] [facility] but suspect this is a stable condition. Because of her faster heart rates, will add low-dose beta- adam in addition to her ARB. Ms. Coleman and I discussed these findings and recommendations and she is pleased to know that she continues to improve. I will arrange for her to have outpatient echocardiogram in 3 months. I will further discuss with Dr. Garcia and await additional recommendations. IMPRESSION/PLAN: 1. ACUTE CHF - secondary to diastolic dysfunction. Initially, NYHA Class III and now NYHA Class I. She has diuresed well and CHF has now resolved. See above discussion 2. BILATERAL PNEUMONIA - pulmonology on board and treating aggressively. 3. HYPERTENSION - adding low-dose metoprolol for better blood pressure control and management of her heart rate. 4. MILD TO MODERATE MITRAL REGURGITATION - repeat echocardiogram [address] [facility]. Continue ARB. Adding low-dose metoprolol succinate. CC: Sheron Melendez MD - Home Medications and Allergies Home Medications: Home Medications Medication Instructions Recorded Confirmed Type ALPRAZolam [Alprazolam] 0.5 mg PO TID PRN 09/10/17 09/10/17 History Dextroamphetamine/Amphetamine 20 mg PO BID 09/10/17 09/10/17 History [Adderall 20 mg Tablet] Fluoxetine HCl [Prozac] 40 mg PO DAILY 09/10/17 09/10/17 History Losartan/Hydrochlorothiazide 1 tablet PO DAILY 09/10/17 09/10/17 History [Losartan-Hctz 100-25 mg Tab] Allergies/Adverse Reactions: Allergies Allergy/AdvReac Type Severity Reaction Status Date / Time Hydromorphone [From Dilaudid] Allergy Verified 09/10/17 15:07 morphine Allergy Verified 09/10/17 15:07 sulfamethoxazole Allergy Verified 09/10/17 15:07 [From Bactrim] trimethoprim [From Bactrim] Allergy Verified 09/10/17 15:07 Review of systems: REVIEW OF SYSTEMS: - Constitutional Constitutional: Present: Fatigue for the past several weeks, now improved over the past 2 days. Absent: syncope, anorexia, night sweats - EENT Eyes: Absent: blurry vision, loss of vision, diplopia Ears: Absent: decreased hearing, ear pain, ear discharge - Cardiovascular Cardiovascular: Denies: chest pain with exertion, denies edema or palpitations. Respiratory Respiratory: Present: BENTLEY initially found it difficult to walk room to room, cough including hemoptysis. Absent: wheezing - Gastrointestinal Gastrointestinal: Denies: constipation. Absent: abdominal pain, hematemesis, hematochezia, melena, change in bowel habits, nausea - Genitourinary Genitourinary: Absent: difficulty urinating, dysuria, urinary hesitancy, flank pain - Musculoskeletal Musculoskeletal: Denies back pain Absent: joint swelling, muscle cramps, muscle weakness - Neurological Neurological: Present: normal gait without frequent falls. Absent: dizziness, hemiparesis - Psychiatric Psychiatric: Absent: anxiety, depression, difficulty concentrating - Endocrine Endocrine: Absent: cold intolerance, heat intolerance, polyuria, polyphagia, polydipsia - Hematologic/Lymphatic Hematologic/Lymphatic: Present: easy bruising. Absent: easy bleeding -Integumentary Integumentary: Absent: lesions, rashes, skin breakdown Medical,Surgical,& Family Hx - Medical History Cardio: History of: Hypertension No history of: Cardiac Dysrhythmia, CAD, HI Psychological: History of: Anxiety Disorders, Depression Neurology: History of: Migraine Endocrine: No history of: Diabetes Mellitus (NIDDM), Dyslipidemia Respiratory: History of: Bronchitis Gastrointestinal: History of: Ulcerative Colitis - Family History Family History: Reports;: Family Cancer (aunt breast ca), Family Heart Disease ( grandpa), Family Hypertension (grandpa) Denies;: Family Diabetes - Social History Smoking Status: Former smoker Have you smoked in the last 12 months: No Frequency of Alcohol Use: Occasionally Type of Drug Use: None Physical Examination Vital Signs Temp Pulse Resp BP Pulse Ox 97.4 F L 92 H 21 157/108 100 09/10/17 15:31 09/10/17 15:31 09/10/17 15:31 09/10/17 15:31 09/10/17 15:31 Exam: General: [Appears well with no apparent distress.] [Pleasant and cooperative. ] [Appears comfortable.] HEENT: [PERRL, normocephalic, atraumatic. Mucous membranes moist. No jaundice noted. Conjunctiva moist and clear, sclerae anicteric] Neck: No JVD/HJR, no thyromegaly or lymphadenopathy noted. No carotid bruit appreciated Cardiac: [Regular rate and rhythm.] [No obvious murmur, rub or gallop.] Lungs: [Clear to auscultation without accessory muscle use to assist the respiratory pattern.] Not requiring oxygen Abdomen: Soft, bowel sounds normoactive. Nontender and nondistended. No abdominal bruit or thrill noted. No masses noted. Musculoskeletal: No fluid collection. Decreased range of motion is noted. Extremities: No clubbing, cyanosis noted. [ No edema noted.] Upper extremity pulses 2+. Lower extremity pulses 2+. Capillary refill less than 3 seconds. Skin: No unusual lesions or rashes. No skin breakdown appreciated. Neuro: Awake, alert and oriented 3. Moves all extremities well without hemiparesis or paralysis. No essential tremor is appreciated. Result/EKG - Labs CBC & BMP: 09/13/17 06:02 09/13/17 06:02 Lab Results: I have reviewed the past 24 hour labs Labs: Laboratory Results - last 24 hr 09/13/17 09/13/17 09/13/17 05:55 06:02 06:02 WBC 13.8 H RBC 4.24 Hgb 11.4 L Hct 35.2 L MCV 83.0 L MCH 27 MCHC 32.4 RDW 14.8 Plt Count 626 H MPV 9.8 Neut % (Auto) 86.2 H Lymph % (Auto) 7.6 L [place] % (Auto) 5.1 Eos % (Auto) 0.1 Baso % (Auto) 0.1 Neut # (Auto) 11.9 H Lymph # (Auto) 1.1 L [place] # (Auto) 0.7 Eos # (Auto) 0.0 Baso # (Auto) 0.0 Immature Gran % 0.9 Nucleated RBC % 0.0 Immature Gran # 0.13 Nucleated RBCs # 0.00 Immature Plt Fraction 0.0 ABG pH 7.483 H ABG pCO2 43.2 ABG pO2 107.1 H ABG HCO3 31.7 H ABG Total CO2 33.0 H ABG O2 Saturation 97.9 ABG Base Excess 7.4 H FiO2 36.00 Sodium 136 Potassium 4.8 Chloride 98 Carbon Dioxide 31 Anion Gap 11.8 BUN 30 H Creatinine 0.70 GFR Calculation 118 BUN/Creatinine Ratio 42.00 H Glucose 88 Calculated Osmolality 276.0 Calcium 9.1 B-Natriuretic Peptide 09/13/17 06:02 WBC RBC Hgb Hct MCV MCH MCHC RDW Plt Count MPV Neut % (Auto) Lymph % (Auto) [place] % (Auto) Eos % (Auto) Baso % (Auto) Neut # (Auto) Lymph # (Auto) [place] # (Auto) Eos # (Auto) Baso # (Auto) Immature Gran % Nucleated RBC % Immature Gran # Nucleated RBCs # Immature Plt Fraction ABG pH ABG pCO2 ABG pO2 ABG HCO3 ABG Total CO2 ABG O2 Saturation ABG Base Excess FiO2 Sodium Potassium Chloride Carbon Dioxide Anion Gap BUN Creatinine GFR Calculation BUN/Creatinine Ratio Glucose Calculated Osmolality Calcium B-Natriuretic Peptide 399 H - Diagnostic Findings Procedure: Chest x-ray: report reviewed by me, CT - chest: report reviewed by me - EKG EKG results: interpreted by me EKG shows: tachycardia, sinus rhythm Specialty Discharge - Follow Up or Referrals Follow up with: Brad Garcia MD [Physician] - (Echo at [facility] 3 months RE: mitral regurgitation. Dr. Garcia to read. )
[2017-09-13] MEDS: METOPROLOL SUCCINATE XL 25 MG TABLET PO SCH (14:40)
[2017-09-13] MEDS: amLODIPine 5 MG TABLET PO SCH (17:44)
[2017-09-13] MEDS: traMADol 50 MG TABLET PO PRN (21:16)
[2017-09-13] MEDS: FERROUS SULFATE 325 MG TABLET PO SCH (21:17)
[2017-09-14] MEDS: VANCOMYCIN INJ 1,000 MG in SODIUM CHLORIDE 0.9% 250 ML IV SCH ×3 (00:32→17:45)
[2017-09-14] MEDS: ALBUTEROL/IPRATROPIUM 3 ML NEB RESP TX SCH ×4 (00:40→20:11)
[2017-09-14 07:06] LABS: Basophils % 0.2 % (0.0-0.8); Eosinophils % 0.1 % (0.00-10.9); Hematocrit 35.5 VOL% (35.7-47.0); Hemoglobin 11.4 GM/DL (12.0-16.0); Immature Granulocytes % 1.5 %; Immature Granulocytes Absolute 0.18 #; Lymphocytes # 1.7 10*3/uL (1.4-4.0); Lymphocytes % 14.1 % (21.3-54.2); Mean Corpuscular HGB Conc 32.1 GM/DL (32-36); Mean Corpuscular Hemoglobin 27 PG (27-34); Mean Corpuscular Volume 82.4 FL (87-102); Mean Platelet Volume 9.4 FL (9.6-12.0); Monocytes # 0.9 10*3/uL (0.11-0.8); Monocytes % 7.3 % (1.7-12.7); Neutrophils # 9.2 10*3/uL (1.4-7.4); Neutrophils % 76.8 % (38.7-73.9); Platelet Count 640 T/CUMM (130-400); Red Blood Count 4.31 MC/CUMM (3.8-5.5); Red Cell Distribution Width 14.7 % (9.3-17.3)
[2017-09-14 07:41] LABS: Magnesium 2.1 MG/DL (1.8-2.4); Potassium 4.8 MMOL/L (3.5-5.1); Risk Ratio 3.1; VLDL CHOLESTEROL 24.4 MG/DL
[2017-09-14] MEDS: LOSARTAN 50 MG TABLET PO SCH (09:08)
[2017-09-14] MEDS: FUROSEMIDE 40 MG TABLET PO SCH (09:09)
[2017-09-14] MEDS: FERROUS SULFATE 325 MG TABLET PO SCH ×2 (09:09→21:15)
[2017-09-14] MEDS: PANTOPRAZOLE 40 MG TABLET PO SCH (09:10)
[2017-09-14] MEDS: METOPROLOL SUCCINATE XL 25 MG TABLET PO SCH (09:10)
[2017-09-14] MEDS: amLODIPine 5 MG TABLET PO SCH (09:10)
[2017-09-14] MEDS: methylPREDNISolone SOD SUC 40 MG/1 ML VIAL IV SCH ×2 (09:11→21:38)
[2017-09-14] MEDS: FUROSEMIDE 40 MG/4 ML VIAL IV SCH (09:20)
--- NOTE | 2017-09-14 13:02 | Hospitalist Progress Note ---
Assessment and Plan (1) Pneumonia Status: Acute Assessment and plan: 1)bilateral pneumonia- appreciate Dr Johnston and pulmonary advice. On vanc and zosyn now. Definitely improving. Continue current care with 4 more days of antibiotics per ID. Consider change to po- defer to ID. 2)HTN- stable- norvasc added by cards. follow. 3)Ulcerative colitis- stable. Current Visit: Yes (2) Hypertension Status: Chronic Current Visit: Yes Qualifiers: Qualified Code(s): I10 - Essential (primary) hypertension (3) Ulcerative colitis, chronic Status: Acute Current Visit: Yes (4) Dyspnea Status: Acute Current Visit: Yes Hospitalist: Subjective Interval history: Mrs Coleman is feeling good today. She is breathing comfortably and able to walk in the halls on room air. rare cough, no fever. Exam - Constitutional Vitals: Period Temp Pulse Resp BP Sys/Cardoaz Pulse Ox Last 24 Hr 97.3 F-98.7 F 84-103 16-20 140-149/66-100 92-99 General appearance: no acute distress, over weight - Eye Eye exam: Present: EOMI. Absent: scleral icterus - Respiratory Respiratory exam: Present: clear to auscultation bilaterally - Cardiovascular Cardiovascular exam: Present: regular rate and rhythm - GI/Abdominal GI/Abdominal exam: Present: normal bowel sounds, soft - Extremities Exam Extremities exam: Absent: edema Results - Labs CBC & BMP: 09/14/17 06:43 09/14/17 06:43 Lab Results: I have reviewed the past 24 hour labs Specialty Discharge - Follow Up or Referrals Follow up with: Brad Abarca MD [Physician] - (Echo at [facility] 3 months RE: mitral regurgitation. Dr. Abarca to read. )
--- NOTE | 2017-09-14 13:06 | Cardiology Progress Note ---
Ellie Guerrero April RN, am scribing for, and in the presence of, Brad Garcia MD 13:05. Assessment and Plan (1) Acute diastolic CHF (congestive heart failure), NYHA class 3 Status: Acute Assessment and plan: Initial assessment and plan September 13, 2017: 1. Echocardiogram is fairly unremarkable with normal ejection fraction in 1-2+ mitral regurgitation (benign), with mild LVH likely related to her hypertension not being well controlled. 2. Her pneumonia seems to be improving clinically, add amlodipine 5 mg now daily for blood pressure control. 3. Could consider trying to wean her Adderall if needed to control hypertension (she reports has been a little harder to control since she is on a higher dose) 4. We will continue to follow with you. Assessment and plan September 14, 2017: 1. Ms. Boyer continues to gradually improve with regard to her dyspnea, however she became quite short of breath walking down the hallway is still a little tachycardiac after sitting down. 2. Hypertension is better BP systolic in the 140s; decrease Lasix to once a day to avoid dehydration, and add spironolactone 25 mg daily. 3. Normal ejection fraction noted 4. Being treated for pneumonia 5. Check electrolytes in the morning 6. BNP is almost normalized. Current Visit: Yes (2) Mitral regurgitation Status: Acute Current Visit: Yes (3) Pneumonia Status: Acute Current Visit: Yes (4) Hypertension Status: Chronic Current Visit: Yes Qualifiers: Qualified Code(s): I10 - Essential (primary) hypertension Cardiology - PN: Subj Interval history: OSTOMY RN: DR. GARCIA ([facility]) Summary: Ms. Coleman, 42WF, with risk factors significant for: hypertension. Admitted September 10, 2017 for treatment of acute bilateral pneumonia and hypoxemia. 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 She was hospitalized at [facility] for several days with no improvement in her condition. She continued to require 12 L oxygen simply to maintain her oxygen saturations greater than 90%. She was then transferred to our facility for continued treatment. Cardiology was consulted for evaluation and management of possible acute CHF as her proBNP was 2357 on admission, chest x-ray revealed possible mild CHF. September 11, 2017 echocardiogram revealed: EF greater than 55%, mild to moderate mitral regurgitation. Of note, patient reports she was hypokalemic at [facility] and was given numerous bags of IV fluids in order to correct her potassium. She reports also having taken and completed an entire round of oral steroids over the past several weeks, and has received oral and IV steroids since hospitalization. She is normally very active without chest pain, heaviness, tightness or shortness of breath. Denies palpitations or heart racing. Initially while hospitalized at [facility] she tells me her blood pressure was uncontrolled with blood pressure around 170/110 mmHg. It is usually well controlled. Heart rate has been high during admission ( averaging 100 bpm) but no arrhythmia. September 14, 2017: Ms. Coleman is followed for chronic, stable condition hypertension. She is also being followed for acute conditions of bilateral pneumonia and hypoxemia. She states she feels much better today. She denies any chest pain. She reports yesterday walking to the cafeteria as well as the pharmacy. She states that she did have to stop and rest, but that she tolerated it well otherwise. She says she slept without her oxygen last night, reports her sats have been staying in the upper 90s. She also says that when she takes a deep breath she does not feel the pressure in her chest that she was feeling before. Potassium today is stable at 4.8. Review of systems: Cardiovascular: Denies chest pain or palpitations. Pulmonary: Dyspnea on exertion, oxygen not in use. Exam (Progress Note) - Constitutional Vitals: Period Temp Pulse Resp BP Sys/[place] Pulse Ox Last 24 Hr 97.3 F-98.7 F 84-103 16-20 140-149/66-100 92-99 General appearance: no acute distress, over weight Exam: General: Appears well with no apparent distress. Pleasant and cooperative. Appears comfortable. HEENT: PERRL, normocephalic, atraumatic. Mucous membranes moist. No jaundice noted. Conjunctiva moist and clear, sclerae anicteric Neck: No JVD/HJR, no thyromegaly or lymphadenopathy noted. No carotid bruit appreciated Cardiac: Regular rate and rhythm. No obvious murmur, rub or gallop. Lungs: Clear to auscultation without accessory muscle use to assist the respiratory pattern. Not requiring oxygen Abdomen: Soft, bowel sounds normoactive. Nontender and nondistended. No abdominal bruit or thrill noted. No masses noted. Musculoskeletal: No fluid collection. Decreased range of motion is noted. Extremities: No clubbing, cyanosis noted. No edema noted. Upper extremity pulses 2+. Lower extremity pulses 2+. Capillary refill less than 3 seconds. Skin: No unusual lesions or rashes. No skin breakdown appreciated. Neuro: Awake, alert and oriented 3. Moves all extremities well without hemiparesis or paralysis. No essential tremor is appreciated. - Head Head exam: Present: normal inspection, normocephalic, atraumatic - Neck Neck exam: Present: normal inspection - Respiratory Respiratory exam: Absent: rhonchi, stridor, wheezes - Cardiovascular Cardiovascular exam: Present: tachycardia. Absent: diastolic murmur, rubs - GI/Abdominal GI/Abdominal exam: Present: soft. Absent: tenderness - Extremities Exam Extremities exam: Absent: edema Result/EKG - Labs CBC & BMP: 09/14/17 06:43 09/14/17 06:43 Lab Results: I have reviewed the past 24 hour labs Labs: Laboratory Results - last 24 hr 09/14/17 09/14/17 09/14/17 06:43 06:43 06:43 WBC 12.0 RBC 4.31 Hgb 11.4 L Hct 35.5 L MCV 82.4 L MCH 27 MCHC 32.1 RDW 14.7 Plt Count 640 H MPV 9.4 L Neut % (Auto) 76.8 H Lymph % (Auto) 14.1 L [place] % (Auto) 7.3 Eos % (Auto) 0.1 Baso % (Auto) 0.2 Neut # (Auto) 9.2 H Lymph # (Auto) 1.7 [place] # (Auto) 0.9 H Eos # (Auto) 0.0 Baso # (Auto) 0.0 Immature Gran % 1.5 Nucleated RBC % 0.0 Immature Gran # 0.18 Nucleated RBCs # 0.00 Immature Plt Fraction 0.0 Sodium Potassium Chloride Carbon Dioxide Anion Gap BUN Creatinine GFR Calculation BUN/Creatinine Ratio Glucose Calculated Osmolality Calcium Magnesium B-Natriuretic Peptide 218 H Triglycerides 122 Cholesterol 180 LDL Cholesterol 110.0 VLDL Cholesterol 24.4 HDL Cholesterol 58 Heart Disease Risk Ratio 3.10 Vancomycin Trough 09/14/17 09/14/17 06:43 08:25 WBC RBC Hgb Hct MCV MCH MCHC RDW Plt Count MPV Neut % (Auto) Lymph % (Auto) [place] % (Auto) Eos % (Auto) Baso % (Auto) Neut # (Auto) Lymph # (Auto) [place] # (Auto) Eos # (Auto) Baso # (Auto) Immature Gran % Nucleated RBC % Immature Gran # Nucleated RBCs # Immature Plt Fraction Sodium 136 Potassium 4.8 Chloride 99 Carbon Dioxide 28 Anion Gap 13.8 BUN 28 H Creatinine 0.70 GFR Calculation 118 BUN/Creatinine Ratio 40.00 H Glucose 97 Calculated Osmolality 277.0 Calcium 9.0 Magnesium 2.1 B-Natriuretic Peptide Triglycerides Cholesterol LDL Cholesterol VLDL Cholesterol HDL Cholesterol Heart Disease Risk Ratio Vancomycin Trough 14.0 - Diagnostic Findings Procedure: Chest x-ray: report reviewed by me - EKG EKG results: interpreted by me EKG shows: sinus rhythm Specialty Discharge - Follow Up or Referrals Follow up with: Brad Garcia MD [Physician] - (Echo at [facility] 3 months RE: mitral regurgitation. Dr. Garcia to read. ) IRima Randall Scott, MD, personally performed the services described in this documentation, ascribed by Delisa Argueta RN in my presence, and it is both accurate and complete 305 .
--- NOTE | 2017-09-14 13:07 | Pulmonology Progress Note ---
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 My impressions were. #1: Acute bilateral pneumonia most likely secondary to mycoplasma pneumonia, but consider bacterial superinfection #2: Hypoxemia secondary to #1 #3: Hypertension #4: History of ulcerative colitis #5: Hyperkalemia #6: Anxiety #7: Depression #8: Migraines #9: Anemia #10: Elevated LDH #11: See past history 12. Additional findings are. Low iron. Low B12 level. Elevated LDH. 13. Echocardiogram. 09/11/2017. Mild to moderate mitral regurgitation 14. B12 deficiency (pernicious anemia). Iron deficiency. See note 09/14/2017 09/11/2017. Today's chest x-ray shows some subtle improvement especially on the left. There is impractical ground for 5 lobe alveolar interstitial infiltrate. Small amount of pleural effusion can be seen bilaterally. Chest x- ray done yesterday showed multiple areas of consolidation. It was more pleural fluid and expected on the right and the left. Patient has been diuresed beginning last night. She has put out a lot of fluid she feels like she can breathe a good bit better. ABGs on FiO2 of 40% or is not as good as I would like. PH is 7.45. PCO2 is 39.8. PO2 is 88.1 and bicarb is 27.2. Patient's chest is clear and she has better inspiratory excursion. We talked about the possibility of adult respiratory distress syndrome. If the patient deteriorates any she should be put on a ventilator and she understands that. Both the patient and I are hopeful that the day represents a turnaround for her. Patient's sputum showed few gram-positive cocci and many gram-positive rods. The really only 3 possibilities on the gram-positive rods. This would be Bacteroides, Listeria and anthrax. I have questioned patient about potential exposures and is not a lot to suggest any of these possibilities. I noticed a Cleocin has been added to her regimen and I think this is a good idea. Patient is on Fortaz and vancomycin. She is also on Zithromax. She reportedly had mycoplasma pneumoniae in [place]. Her cold agglutinins here negative. I am not opposed to continuing Zithromax for short period of time because of his anti-inflammatory properties. Vitamin B12 is low at 208. Folic acid is normal. Thyroid function tests are normal. Natruretic peptide is elevated at 2359. LDH is also elevated. Serum iron is low. 09/12/2017. Today's chest x-ray is improved again. Heart is top normal. Pulmonary arteries are top normal. 5 lobe alveolar/interstitial infiltrate is improved by 50% or more. Pleural effusions have decreased. Patient feels much better. Echocardiogram. 09/11/2017. Normal left ventricular size with mild concentric left ventricular hypertrophy and ejection fraction greater than 55%. Mildly dilated left atrium with mild to moderate mitral regurgitation. Mild enlargement of the right atrium. Vancomycin level is 15.8 this is being managed by pharmacology. Natruretic peptide is dropped from 2357-899. ABGs on FiO2 of 50% show a pH 7.433, PCO2 of 46.5 and a PO2 of 157. Bicarb is 29.8. White count has dropped to 11,300 with an H&H of 10.4/32.8 and a platelet count 619,000 09/14/2017. Patient continues to do very well. Her exercise tolerance is increasing rapidly. I am cutting back on her medicines and I have reviewed our plans down the road. I think she could be ready for discharge on or Wednesday. I will need to follow her up concerning her lung disease. Dr. Jori Quezada has seen the patient in cardiology consultation. He does not feel like her mitral valve regurgitation is significant at this point and plans to follow her up in 6 months. All of this is been reviewed with the patient, her mother and her stepfather. CARLTON Patricia nurse practitioner was present. Electrolytes normal. Creatinine is 0.7 with a BUN of 28. Natruretic peptide is 218. White blood cell count is 12,000 with 77 segs 14 lymphs and 7 monos. H&H is 11.4/35.5. Prognosis is the patient has low B12. Her folic acid is normal. She also has low iron. Patient was given an injection of B12 yesterday and she was also started on iron Physical exam. Vital signs. See below. Afebrile. Psychiatric. Alert and oriented. Intelligent. I do not hear Velcro rales. Heart. No gallop Abdomen. Nondistended nontender. Bowel sounds are positive. Face. Symmetrical. Lips and tongue are normal. Neck. Symmetrical no meningismus. Lymphatics. No submandibular cervical supraclavicular or epitrochlear adenopathy Chest is clear with better inspiratory excursion. Extremities. Nothing to suggest deep venous thrombophlebitis The remainder the physical exam is negative. Plan: 09/10/2017 #1: We agree with the azithromycin, but will add Fortaz and vancomycin for greater gram-negative and gram-positive coverage in the event that this is a bacterial superinfection. Pharmacology has been consulted to dose and manage the vancomycin. #2: We have started Solu-Medrol 40 mg IV every 8 hours. This could easily develop into an adult respiratory distress syndrome picture. We discussed this at length with the patient and her female family member who is present. If the patient begins to deteriorate, we would need to intubate her. She understands this and states that she had been thinking about this prior to our conversation. 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 #3: Check cold agglutinins, Legionella, pro-calcitonin, and strep pneumoniae urine antigen #4: Daily chest x-ray and ABGs #5: Check iron studies, B12 level, and folate level #6: See orders 09/11/2017. 1. Causing amount of pleural effusion this patient has I am going to check an echocardiogram. 2. Continue to follow daily chest x-rays and ABGs. 3. At the patient deteriorates she needs to be intubated and treated as adult respiratory distress syndrome. 4. Legionella titers pending. Cultures are pending. Pro-calcitonin is pending. 5. Echocardiogram. 6. See today's note above. 09/12/2017. 1. See today's note above 2. Chest x-ray and ABGs have improved 3. Mild to moderate mitral regurgitation. 4. So far no positive cultures. 5. Marked improvement in the patient. 09/14/2017 1. See today's note above. 2. Pernicious anemia 3. Iron deficiency anemia 4. Probable or Wednesday discharge. I will need to follow the patient up for lung disease. 5. Follow-up with Dr. Jori Quezada in 6 months with echocardiogram. For follow-up of mitral regurgitation. Exam (Progress Note) - Constitutional Vitals: Period Temp Pulse Resp BP Sys/Cardoza Pulse Ox Last 24 Hr 97.3 F-98.7 F 84-103 16-20 140-149/66-100 92-99 Results - Labs CBC & BMP: 09/14/17 06:43 09/14/17 06:43 Specialty Discharge - Follow Up or Referrals Follow up with: Brad Abarca MD [Physician] - (Echo at [facility] 3 months RE: mitral regurgitation. Dr. Abarca to read. )
[2017-09-14 13:36] LABS: Mycoplasma pneumoniae Ab, IgG 2.42 index (<=0.90); Mycoplasma pneumoniae Ab, IgM 0.22 index (<=0.90)
[2017-09-14] MEDS: SPIRONOLACTONE 25 MG TABLET PO SCH (13:43)
--- NOTE | 2017-09-14 14:27 | Infectious Disease Progress ---
Assessment and Plan (1) Pneumonia Status: Acute Assessment and plan: Patient clinically improving. Recommendations: Continue vancomycin and Zosyn for 3 more days o. Current Visit: Yes (2) Ulcerative colitis, chronic Status: Acute Current Visit: Yes (3) Hypertension Status: Chronic Current Visit: Yes Qualifiers: Hypertension type: essential hypertension Qualified Code(s): I10 - Essential (primary) hypertension Infectious Disease - PN: Subj Interval history: Patient doing okay clinically, ambulate in about flow without requirements for supplemental oxygen. No fever. Minimal cough with whitish sputum. Infectious Disease Exam (PN) - Constitutional Vitals: Temp Pulse Resp BP Pulse Ox 98.7 F 96 H 20 147/66 99 09/14/17 11:35 09/14/17 13:48 09/14/17 13:48 09/14/17 11:35 09/14/17 13:48 General appearance: no acute distress, over weight Exam: General appearance: no acute distress - Eye Eye exam: Present: EOMI. no icterus Pupils: Present: BON - ENT ENT exam: no oropharyhgeal exudates - Respiratory Respiratory exam: vesicular BS, no crepitations or wheezes - Cardiovascular Cardiovascular exam: regular rate and rhythm, no murmurs - GI/Abdominal GI/Abdominal exam: normal bowel sounds, soft, non-tender, no organomegaly or mass - Extremities Exam Extremities exam: no edema - Skin Skin exam: no rash Results - Labs CBC & BMP: 09/14/17 06:43 09/14/17 06:43 Lab Results: I have reviewed the past 24 hour labs Specialty Discharge - Follow Up or Referrals Follow up with: Brad Abarca MD [Physician] - (Echo at [facility] 3 months RE: mitral regurgitation. Dr. Abarca to read. )
[2017-09-14] MEDS: traMADol 50 MG TABLET PO PRN (21:15)
[2017-09-15] MEDS: ALBUTEROL/IPRATROPIUM 3 ML NEB RESP TX SCH ×3 (01:08→12:25)
[2017-09-15] MEDS: VANCOMYCIN INJ 1,000 MG in SODIUM CHLORIDE 0.9% 250 ML IV SCH ×2 (01:35→10:32)
[2017-09-15 07:27] LABS: Calcium 9.2 MG/DL (8.5-10.1); Magnesium 2.1 MG/DL (1.8-2.4); Osmolality,Calculated 274.1 MOS/KG (273-304); Potassium 4.8 MMOL/L (3.5-5.1)
[2017-09-15 09:48] LABS: Calcium 9.1 MG/DL (8.5-10.1); Osmolality,Calculated 272.4 MOS/KG (273-304); Potassium 4.2 MMOL/L (3.5-5.1)
[2017-09-15] MEDS: METOPROLOL SUCCINATE XL 25 MG TABLET PO SCH (09:52)
[2017-09-15] MEDS: methylPREDNISolone SOD SUC 40 MG/1 ML VIAL IV SCH (09:52)
[2017-09-15] MEDS: amLODIPine 5 MG TABLET PO SCH (09:53)
[2017-09-15] MEDS: PANTOPRAZOLE 40 MG TABLET PO SCH (09:53)
[2017-09-15] MEDS: SPIRONOLACTONE 25 MG TABLET PO SCH (09:53)
[2017-09-15] MEDS: FUROSEMIDE 40 MG TABLET PO SCH (09:53)
[2017-09-15] MEDS: FERROUS SULFATE 325 MG TABLET PO SCH (09:53)
--- NOTE | 2017-09-15 10:06 | Cardiology Progress Note ---
Assessment and Plan (1) Acute diastolic CHF (congestive heart failure), NYHA class 3 Status: Acute Assessment and plan: Initial assessment and plan September 13, 2017: 1. Echocardiogram is fairly unremarkable with normal ejection fraction in 1-2+ mitral regurgitation (benign), with mild LVH likely related to her hypertension not being well controlled. 2. Her pneumonia seems to be improving clinically, add amlodipine 5 mg now daily for blood pressure control. 3. Could consider trying to wean her Adderall if needed to control hypertension (she reports has been a little harder to control since she is on a higher dose) 4. We will continue to follow with you. Assessment and plan September 14, 2017: 1. Ms. Boyer continues to gradually improve with regard to her dyspnea, however she became quite short of breath walking down the hallway is still a little tachycardiac after sitting down. 2. Hypertension is better BP systolic in the 140s; decrease Lasix to once a day to avoid dehydration, and add spironolactone 25 mg daily. 3. Normal ejection fraction noted 4. Being treated for pneumonia 5. Check electrolytes in the morning 6. BNP is almost normalized. September 15, 2017: 1. Ms. Boyer is much improved with regard to her dyspnea her BNP is almost in the normal range today. 2. Hypertension is controlled, with heart rate down a bit in the 90s to low 100s 3. We will continue amlodipine, and low-dose spironolactone and Lasix p.o. 4. Follow-up 1-2 weeks in clinic with lab, consider decreasing medication at that time. 5. Improving clinically from her pneumonia; mild hyperglycemia noted intermittently possibly related to steroids. 6. ADD/ulcerative colitis diagnosis is noted Current Visit: Yes (2) Mitral regurgitation Status: Acute Current Visit: Yes (3) Pneumonia Status: Acute Current Visit: Yes (4) Hypertension Status: Chronic Current Visit: Yes Qualifiers: Hypertension type: essential hypertension Qualified Code(s): I10 - Essential (primary) hypertension Cardiology - PN: Subj Interval history: Ms. Coleman is clearly doing better and his shortness of breath walking room today. She is anxious for discharge. She has no chest pain dizziness or swelling. Exam (Progress Note) - Constitutional Vitals: Period Temp Pulse Resp BP Sys/Cardoza Pulse Ox Last 24 Hr 97.4 F-98.7 F 88-105 16-20 126-151/66-97 88-99 General appearance: no acute distress, over weight - Head Head exam: Present: normal inspection, normocephalic, atraumatic - Neck Neck exam: Present: normal inspection - Respiratory Respiratory exam: Present: rhonchi. Absent: rales, stridor, wheezes - Cardiovascular Cardiovascular exam: Present: regular rate and rhythm, tachycardia (Borderline tachycardia). Absent: diastolic murmur, rubs - GI/Abdominal GI/Abdominal exam: Present: soft. Absent: tenderness - Extremities Exam Extremities exam: Absent: edema - Neurological Exam Neurological exam: Present: alert, oriented X3 Result/EKG - Labs CBC & BMP: 09/14/17 06:43 09/15/17 08:59 Labs: Laboratory Results - last 24 hr 09/10/17 09/11/17 09/15/17 Unknown 03:11 06:15 Sodium 135 L Potassium 4.8 Chloride 100 Carbon Dioxide 24 Anion Gap 15.8 H BUN 26 H Creatinine 0.70 GFR Calculation 118 BUN/Creatinine Ratio 37.00 H Glucose 90 Calculated Osmolality 274.1 Calcium 9.2 Magnesium 2.1 B-Natriuretic Peptide Procalcitonin < 0.10 M.pneumoniae IgG Titer 2.42 M.pneumoniae IgM Titer 0.22 09/15/17 09/15/17 08:59 08:59 Sodium 133 L Potassium 4.2 Chloride 102 Carbon Dioxide 24 Anion Gap 11.2 BUN 28 H Creatinine 0.90 GFR Calculation 87 BUN/Creatinine Ratio 31.00 H Glucose 122 H Calculated Osmolality 272.4 L Calcium 9.1 Magnesium B-Natriuretic Peptide 125 H Procalcitonin M.pneumoniae IgG Titer M.pneumoniae IgM Titer Specialty Discharge - Follow Up or Referrals Follow up with: Brad Abarca MD [Physician] - 2 Weeks ()
--- NOTE | 2017-09-15 10:21 | XRay Report ---
XR chest 2V Date: 09/15/2017 9:38 AM History: ARDS Comparison: 09/13/2017 Technique: PA and lateral chest Findings: The heart is smaller in size. Reduced parenchymal findings in the lungs with tiny pleural effusions. Stable mediastinum and osseous structures. Impression: Reduced infiltration/atelectasis in the lungs especially at the lung bases. PROCEDURE INTERPRETED AT [facility] DEPARTMENT OF RADIOLOGY Final Report Signed by: Dr. Davina Miner
--- NOTE | 2017-09-15 10:57 | Discharge Summary ---
Hospital Course - Hospital Course Hospital Course: Ms yin was admitted after failed outpatient and treatment of pneumonia. She had been hospitalized at an outside hospital then went home but did not do well. When she presented she was in hypoxic respiratory fialure acute due to the pneumonia. She was treated with IC antibiotics and supportive care and has improved rapidly. She has been off O2 for 2 days and walking around in the halls without shortness of breath as she had before. She understands she should return home and take it easy until she is completely better. While here she was also seen by Dr Agustin and Dr Dee Davila. She will see Dr Agustin in follow up. She will complete oral antibiotics and be on steroids to address ARDS per Dr Agustin's direction until he sees her in clinic. She was also seen by cardiology for her MR and her meds were changed. She will see Dr Abarca in clinic also. She will be discharged today. - Time spent with patient Time with patient DS: Greater than 30 minutes (36 minutes were required for care coordination, discharge planning, documentation, medicine reconciliation) Diagnosis - Discharge Diagnosis (1) Pneumonia Status: Resolved (2) Hypertension Status: Chronic (3) Ulcerative colitis, chronic Status: Chronic (4) Dyspnea Status: Resolved Specialty Discharge - Follow Up or Referrals Follow up with: Brad Abarca MD [Physician] - 2 Weeks (with cbc tsh bmp mag flp ekg --- We will call you with your follow-up appointment once we receive it from Dr. Abarca's office. Thanks.) Darren Agustin MD [Physician] - 2 Weeks (CXR, PFT, BNP, BMP --- We will call you with your follow-up once we receive it from Dr. Agustin's office. Thanks.) Discharge Plan - Discharge Data Disposition: Disch To Home/Self Care Condition at Discharge: Stable Discharge Diet: heart healthy Activity: resume usual activities as tolerated - Discharge Medications New amLODIPine [Norvasc] 5 mg PO DAILY #30 tablet Cefuroxime Tab [Ceftin] 500 mg PO BID #6 tablet Ferrous Sulfate Tab [Feosol Original Tab] 325 mg PO BID tablet Furosemide Tab [Lasix Tab] 40 mg PO DAILY #30 tablet guaiFENesin/DM ER 600-30 [Mucinex Dm 600-30 MG] 1 tablet PO BID PRN tablet PRN Reason: Congestion predniSONE TAB [PredniSONE] 20 mg PO DAILY #20 tablet Albuterol/Ipratropium Neb [Duoneb] 3 ml RESP TX RT Q6H Clindamycin Cap [Cleocin Cap] 300 mg PO TID #9 capsule Spironolactone [Aldactone] 25 mg PO DAILY #30 tablet Continue Dextroamphetamine/Amphetamine [Adderall 20 mg Tablet] 20 mg PO BID ALPRAZolam [Alprazolam] 0.5 mg PO TID PRN PRN Reason: Anxiety Fluoxetine HCl [Prozac] 40 mg PO DAILY Discontinued Losartan/Hydrochlorothiazide [Losartan-Hctz 100-25 mg Tab] 1 tablet PO DAILY - Follow Up or Referral Follow Up: Brad Abarca MD [Physician] - 2 Weeks (with cbc tsh bmp mag flp ekg --- We will call you with your follow-up appointment once we receive it from Dr. Abarca's office. Thanks.) Darren Agustin MD [Physician] - 2 Weeks (CXR, PFT, BNP, BMP --- We will call you with your follow-up once we receive it from Dr. Agustin's office. Thanks.) - Forms/Instructions Instructions: Heart Failure (DC), Pneumonia (DC) Exam - Constitutional Vitals: Period Temp Pulse Resp BP Sys/Cardoza Pulse Ox Last 24 Hr 97.4 F-98.7 F 88-105 16-20 126-151/66-97 88-99 General appearance: no acute distress, over weight - Eye Eye exam: Present: EOMI. Absent: scleral icterus - Respiratory Respiratory exam: Present: clear to auscultation bilaterally - Cardiovascular Cardiovascular exam: Present: regular rate and rhythm - GI/Abdominal GI/Abdominal exam: Present: normal bowel sounds, soft - Extremities Exam Extremities exam: Absent: edema Discharge Results Procedures and tests throughout hospitalization: Pending Orders 09/10/17 17:33 Blood Culture Stat 09/11/17 03:11 Fungitell, S IN AM 09/11/17 22:11 Fungal Culture w/ Prep Routine 09/16/17 04:00 XR chest 2V IN AM BMP [Basic Metabolic Panel] IN AM Labs on day of discharge: Labs from last 24 hours 09/15/17 09/15/17 09/15/17 08:59 08:59 06:15 Sodium 133 L 135 L Potassium 4.2 4.8 Chloride 102 100 Carbon Dioxide 24 24 Anion Gap 11.2 15.8 H BUN 28 H 26 H Creatinine 0.90 0.70 GFR Calculation 87 118 BUN/Creatinine Ratio 31.00 H 37.00 H Glucose 122 H 90 Calculated Osmolality 272.4 L 274.1 Calcium 9.1 9.2 Magnesium 2.1 B-Natriuretic Peptide 125 H Procalcitonin M.pneumoniae IgG Titer M.pneumoniae IgM Titer 09/11/17 09/10/17 03:11 Unknown Sodium Potassium Chloride Carbon Dioxide Anion Gap BUN Creatinine GFR Calculation BUN/Creatinine Ratio Glucose Calculated Osmolality Calcium Magnesium B-Natriuretic Peptide Procalcitonin < 0.10 M.pneumoniae IgG Titer 2.42 M.pneumoniae IgM Titer 0.22 Preliminary micro results at discharge 09/10/17 17:33 Blood Culture - Preliminary Blood No growth at 3 days 09/10/17 17:50 Blood Culture - Preliminary Blood No growth at 3 days DS: Provider Date of admission: 09/10/17 14:42 Primary care physician: Estevan Ashton Attending physician on admission: Oscar Hernadez MD Consults: 09/10/17 17:03 Consult to Physician [CONS] Routine Comment: Mycoplasma pna, severe [place] Consulting Provider: Darren Agustin 09/10/17 19:41 Consult to Pharmacy [CONS] Routine Reason for Pharmacy Consult: Dose/Manage Vancomycin 09/11/17 09:04 Consult to Physician [CONS] Routine Comment: Consulting Provider: Fabby Johnston 09/13/17 11:16 Consult to Physician [CONS] Routine Comment: MR; recent CHF; ?SBE Consulting Provider: Cardiology - [facility] Person Notified: [email or web address] Date Notified: 09/13/17 Time Notified: 11:58 09/14/17 12:28 Consult to Case Mgmt/Social Srvs [CONS] Routine Reason for Case Mgmt/Social Srvs: Other Consult Comment: Needs help with FMLA paperwork Discharging clinician: Sheron Melendez MD
--- NOTE | 2017-09-15 11:26 | Pulmonology Progress Note ---
Pulmonary - PN: Subj Interval history: Dar Villegas, [facility]-, acting as scribe for Dr. 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 At that time, our impressions were: #1: Acute bilateral pneumonia most likely secondary to mycoplasma pneumonia, but consider bacterial superinfection #2: Hypoxemia secondary to #1 #3: Hypertension #4: History of ulcerative colitis #5: Hyperkalemia #6: Anxiety #7: Depression #8: Migraines #9: Anemia #10: Elevated LDH #11: See past history #12. Additional findings are. Low iron. Low B12 level. Elevated LDH. #13. Echocardiogram. 09/11/2017. Mild to moderate mitral regurgitation 09/11/2017. Today's chest x-ray shows some subtle improvement especially on the left. There is impractical ground for 5 lobe alveolar interstitial infiltrate. Small amount of pleural effusion can be seen bilaterally. Chest x- ray done yesterday showed multiple areas of consolidation. It was more pleural fluid and expected on the right and the left. Patient has been diuresed beginning last night. She has put out a lot of fluid she feels like she can breathe a good bit better. ABGs on FiO2 of 40% or is not as good as I would like. PH is 7.45. PCO2 is 39.8. PO2 is 88.1 and bicarb is 27.2. Patient's chest is clear and she has better inspiratory excursion. We talked about the possibility of adult respiratory distress syndrome. If the patient deteriorates any she should be put on a ventilator and she understands that. Both the patient and I are hopeful that the day represents a turnaround for her. Patient's sputum showed few gram-positive cocci and many gram-positive rods. The really only 3 possibilities on the gram-positive rods. This would be Bacteroides, Listeria and anthrax. I have questioned patient about potential exposures and is not a lot to suggest any of these possibilities. I noticed a Cleocin has been added to her regimen and I think this is a good idea. Patient is on Fortaz and vancomycin. She is also on Zithromax. She reportedly had mycoplasma pneumoniae in [place]. Her cold agglutinins here negative. I am not opposed to continuing Zithromax for short period of time because of his anti-inflammatory properties. Vitamin B12 is low at 208. Folic acid is normal. Thyroid function tests are normal. Natruretic peptide is elevated at 2359. LDH is also elevated. Serum iron is low. 09/12/2017. Today's chest x-ray is improved again. Heart is top normal. Pulmonary arteries are top normal. 5 lobe alveolar/interstitial infiltrate is improved by 50% or more. Pleural effusions have decreased. Patient feels much better. Echocardiogram. 09/11/2017. Normal left ventricular size with mild concentric left ventricular hypertrophy and ejection fraction greater than 55%. Mildly dilated left atrium with mild to moderate mitral regurgitation. Mild enlargement of the right atrium. 09/13/2017. On room air at rest, the patient's oxygen sats are now approximately 95-99%. They still continues to drop with any exertion, but this is a marked improvement since our initial consultation. Chest x-ray has also made a remarkable improvement over time. We discussed with her today that we feel not only will be dealing with an element of cards, but we also felt that there was an underlying element of congestive heart failure as noted by her significantly elevated natruretic peptide. Certainly, given her presentation, one must consider the possibility of SBE. We have diuresed her, but we feel that we need to continue Solu-Medrol and antibiotics for a while longer. She has never been told that she had mitral regurgitation. All things considered, will consult cardiology for evaluation and treatment. She is also been found to have iron deficiency and B12 deficiency. She has been started on ferrous sulfate will be given B12 injection today. We have discussed her case with Dr. Johnston today and coordinated our care. Medications have been reviewed. Labs been reviewed. White count is 13,800 with 86.2% segs; H&H 11.4/35.2; platelet count 626,000; creatinine 2.70, BUN 30, electrolytes are normal; BNP 399 ABGs this morning on an FiO2 of 36% show pH of 7.483, PCO2 43.2, PO2 107.1, bicarb 31.7, oxygen saturation 97.9% 09/14/2017. Patient continues to do very well. Her exercise tolerance is increasing rapidly. I am cutting back on her medicines and I have reviewed our plans down the road. I think she could be ready for discharge on or Wednesday. I will need to follow her up concerning her lung disease. Dr. Jori Quezada has seen the patient in cardiology consultation. He does not feel like her mitral valve regurgitation is significant at this point and plans to follow her up in 6 months. All of this is been reviewed with the patient, her mother and her stepfather. CARLTON Patricia nurse practitioner was present. Electrolytes normal. Creatinine is 0.7 with a BUN of 28. Natruretic peptide is 218. White blood cell count is 12,000 with 77 segs 14 lymphs and 7 monos. H&H is 11.4/35.5. Prognosis is the patient has low B12. Her folic acid is normal. She also has low iron. Patient was given an injection of B12 yesterday and she was also started on iron. 09/15/2017. The patient is doing very well this morning. We have discussed case with Dr. Melendez and coordinated our care. Ms. Coleman's chest x-ray looks very good. She has been ambulating in the driscoll and has had no oxygen desaturations. All things considered, we feel comfortable agreeing with discharge today. As discussed with the patient and Dr. Hale, she will follow- up with Dr. Agustin in approximately 2 weeks with a chest x-ray, complete pulmonary function test with pre-and postbronchodilator spirometry, BNP, and BMP. We would recommend at discharge, Cleocin 300 mg 3 times daily for 3 days, Ceftin 500 mg twice daily for 3 days, and prednisone 20 mg daily until her return appointment with Dr. Agustin. She has been instructed to stay on ferrous sulfate as prescribed secondary to iron deficiency anemia which is most likely related to her heavy menses. She was also found to have pernicious anemia secondary to B12 deficiency. She was given a B12 injection during this admission and needs to continue these monthly. She understands not to overdo things in the short-term. She knows that we to very large bullet with regard to the adult respiratory distress syndrome. Medications have been reviewed. Recommendations as above. Labs have been reviewed. Creatinine 0.90, BUN 28, sodium 133, potassium 4.2, BNP 125 Exam (Progress Note) - Constitutional Vitals: Period Temp Pulse Resp BP Sys/C[place] Pulse Ox Last 24 Hr 97.4 F-98.7 F 88-105 16-20 126-151/66-97 88-99 Exam: Chest is clear Heart no gallop Abdomen is nontender and nondistended; bowel sounds are positive 4 Extremities with nothing to suggest acute deep venous thrombophlebitis Psychiatric oriented 3 and intelligent Neurologic long-term motor function is intact Plan: Recommendations as above. Your plans for discharge are noted. We will sign off. Please reconsult as needed. Results - Labs CBC & BMP: 09/14/17 06:43 09/15/17 08:59 Specialty Discharge - Follow Up or Referrals Follow up with: Brad Abarca MD [Physician] - 2 Weeks (with cbc tsh bmp mag flp ekg) Darren Agustin MD [Physician] - 2 Weeks (CXR, PFT, BNP, BMP)
[2017-09-15 11:34] VITALS: BP 145/87
--- NOTE | 2017-09-15 11:41 | Event Note ---
Patient doing great, no respiratory difficulties. She is gotten 5 days of antibiotic therapy and I agree that she can go home today given how well she is not on therapy.
== END 2017-09-15 13:15 | disposition home or self-care (01) | DRG 204 ==
LOC: N.4E 14:42 → SUATTDRO 14:42 → N.2E 15:06
PROVIDERS: ADMIT Family Medicine; ATTEND Internal Medicine